=== PATIENT | female | born 1990 | race Caucasian/White ===

== ENCOUNTER 2019-05-26 15:51 | Emergency (ER) | payer OTHER ==
--- OUTSIDE RECORDS SUMMARY | 2019-05-26 15:53 | XMS REPORT | Summary of Care ---
:1990 Author Organization [facility] Address [address] [place] [address] Care Team Providers Name Role Phone Osmani Barreto Primary Care Provider Reason for Visit Reason Comments Care Encounter Details Date Type Department Care Team Description [facility] Supervision of high risk in first trimester (Primary Dx); Visit LENNY Mott Previous delivery affecting , antepartum; [address] [place] [address] History of hypothyroidism; [place], [place] Nausea without vomiting; [address] [place], [place] Varicose veins of legs, antepartum; [phone] [address] UTI symptoms; [phone] Obesity in Allergies Active Allergy Reactions Severity Noted Date Comments Sulfa (Sulfonamide Antibiotics) Rash High 04/16/2019 documented as of this encounter (statuses as of 04/22/2019) Medications Medication Sig Dispensed Refills Start Date End Date Status Thyroid, Pork, (ARMOUR Take 180 mg 0 Active THYROID) 120 mg tablet by mouth daily. HYDROCHLOROTHIAZIDE ORAL Take by 0 Active mouth. vit Take 1 Packet 30 Each 6 04/18/2019 Active 46-msyj-izsbo-dha by mouth (SELECT-OB + DHA) 29 mg daily. iron-1 mg -250 mg combo packIndications: High risk , antepartum documented as of this encounter (statuses as of 04/22/2019) Active Problems Problem Noted Date Cervical high risk human papillomavirus (HPV) DNA test positive 04/18/2019 Overview: Normal pap Smear-> Needs Cotesting @12 months or HPV DNA Typing High risk , antepartum 04/16/2019 Previous delivery affecting , antepartum 04/16/2019 Multiparity 04/16/2019 History of hypothyroidism 04/16/2019 Nausea without vomiting 04/16/2019 Obesity in 06/13/2017 Estimated Date of Delivery Comments Yes 12/15/2019 Based on last menstrual period of 03/10/2019 (Exact Date) documented as of this encounter (statuses as of 04/22/2019) Resolved Problems Problem Noted Date Resolved Date Elevated blood pressure reading without diagnosis of 06/10/2016 04/16/2019 hypertension Hypothyroidism 06/10/2016 04/16/2019 Prehypertension 06/09/2015 04/16/2019 Other general counseling and advice for contraceptive 06/09/2015 06/09/2015 management Contraceptive management 06/09/2015 04/16/2019 Well woman exam 06/09/2015 04/16/2019 Overview: ICD10 Diagnosis Term Internet Systems Administrator Utility Morbid obesity 06/09/2015 06/13/2017 Overview: ICD10 Diagnosis Term Internet Systems Administrator Utility Other malaise and fatigue 06/09/2015 06/10/2016 Overweight 06/06/2013 06/09/2015 Overview: ICD10 Diagnosis Term Internet Systems Administrator Utility delivery delivered 04/16/2011 02/21/2014 Overview: ICD10 Diagnosis Term Internet Systems Administrator Utility documented as of this encounter (statuses as of 04/22/2019) Immunizations Name Administration Dates Next Due Rubella 03/22/2007 Tdap 06/26/2014 documented as of this encounter Social History Tobacco Use Types Packs/Day Years Used Date Former Smoker Quit: 08/25/2010 Smokeless Tobacco: Never Used Alcohol Use Drinks/Week oz/Week Comments No Estimated Date of Delivery Comments Yes 12/15/2019 Based on last menstrual period of 03/10/2019 (Exact Date) Sex Assigned at Date Recorded Not on file Job Start Date Occupation Industry Not on file Not on file Not on file Travel History Travel Start Travel End No recent travel history available. documented as of this encounter Last Filed Vital Signs Vital Sign Reading Time Taken Comments Blood Pressure 147/96 04/22/2019 8:45 AM CDT Pulse 99 04/22/2019 8:45 AM CDT Temperature 36.1 C (97 F) 04/22/2019 8:45 AM CDT Respiratory Rate 16 04/22/2019 8:45 AM CDT Oxygen Saturation - - Inhaled Oxygen Concentration - - Weight 100.8 kg (222 lb 2 oz) 04/22/2019 8:45 AM CDT Height 160 cm (5' 3") 04/22/2019 8:45 AM CDT Body Mass Index 39.35 04/22/2019 8:45 AM CDT documented in this encounter Progress Notes Osmani Barreto, ASSISTANT CLINICAL DIRECTOR - 04/22/2019 9:00 AM CDT Chief complaint: Chief Complaint Patient presents with Care HPI CC: Follow Up Visit Patricia Stone is a 28 year old, , /White female. Patient's last menstrual period was 03/10/2019 (exact date). She is 6w1d with an intrauterine . Her estimated date of delivery is 12/15/2019, by Last Menstrual Period. She has no complains of knots on her legs today today.She denies FM, contractions, LOF and bleeding today.Patient denies current or past physical, sexualor emotional abuse. Histories OB History Para Term AB Living 3 2 2 2 SAB TAB Ectopic Multiple Live Births 2 # Outcome Date GA Lbr Laci/2nd Weight Sex Delivery Anes PTL Lv 3 Current 2 Term 04/15/11 39w0d F SEC YOSEPH Complications: Other (See Comments) 1 Term 01/05/06 40w0d F VAGINAL YOSEPH Past Medical History: Diagnosis Date 2010 Hypothyroidism 06/10/2016 on medication at this time, managed by Li Arellano, last seen in 12/2017 Family History Problem Relation Age of Onset Hypertension Father Cancer Paternal Uncle Diabetes Paternal Grandmother Heart Mother No Significant Medical Problems Sister No Significant Medical Problems Brother Other - see comments Maternal Grandmother thyroid Alzheimers dementia Maternal Grandmother Heart Maternal Grandfather No Significant Medical Problems Paternal Grandfather Arthritis NoFHx defects NoFHx Asthma NoFHx Breast Cancer NoFHx Ovarian Cancer NoFHx Colon Cancer NoFHx Uterine Cancer NoFHx Depression NoFHx Genetic NoFHx High cholesterol NoFHx Mental retardation NoFHx Neurological NoFHx Osteoporosis NoFHx Psychiatry NoFHx Family Status Relation Name Status Fa Alive PUnc Alive PGMo Mo Alive Sis Alive Bro Alive MAunt Alive MUnc Alive PAunt Alive MGMo MGFa PGFa Alive NoFHx (Not Specified) Past Surgical History: Procedure Laterality Date DELIVERY+ CARE 04/15/2011 SECTION 04/15/2011 Social History Socioeconomic History Marital status: Single Spouse name: Not on file Number of children: Not on file Years of education: Not on file Highest education level: Not on file Occupational History Not on file Social Needs Financial resource strain: Not on file Food insecurity: Worry: Not on file Inability: Not on file Transportation needs: Medical: Not on file Non-medical: Not on file Tobacco Use Smoking status: Former Smoker Last attempt to quit: 08/25/2010 Years since quittin.6 Smokeless tobacco: Never Used Substance and Sexual Activity Alcohol use: No Drug use: No Sexual activity: Yes Partners: Male control/protection: Pill Comment: last sexual intercourse 04/13/2019 Lifestyle Physical activity: Days per week: Not on file Minutes per session: Not on file Stress: Not on file Relationships Social connections: Talks on phone: Not on file Gets together: Not on file Attends mandaeism service: Not on file Active member of club or organization: Not on file Attends meetings of clubs or organizations: Not on file Relationship status: Not on file Intimate partner violence: Fear of current or ex partner: Not on file Emotionally abused: Not on file Physically abused: Not on file Forced sexual activity: Not on file Other Topics Concern Not on file Social History Narrative Pt denies current or past physical, sexual or emotional abuse. Pt states she feels safe at home. Sabianism preference none. Patient lives with children. Social History Substance and Sexual Activity Sexual Activity Yes Partners: Male control/protection: Pill Comment: last sexual intercourse 04/13/2019 Labs No new labs Radiology No new radiology. Allergies Crystal is allergic to sulfa (sulfonamide antibiotics). Medications Crystal has a current medication list which includes the following prescription( s): vit 16-yxjz-aumpg-dha, hydrochlorothiazide, and thyroid (pork). Review of Systems Musculoskeletal: Knots on bilateral legs BP (!) 147/96 (BP Location: Right arm, Patient Position: Sitting, BP CUFF SIZE: Adult Medium) | Pulse 99 | Temp 36.1 C (97 F) (Oral) | Resp 16 | Ht 5' 3 " (1.6 m) | Wt 222 lb 2 oz (100.8 kg) |LMP 03/10/2019 (Exact Date) | BMI 39.35 kg/m Pregravid BMI: 39.2 Physical Exam Assessment/Plan Supervision of high risk in first trimester (primary encounter diagnosis) Previous delivery affecting , antepartum Comment: Routine Visit Plan: POCT URINALYSIS W/O SPECIFIC GRAVITY Denies zika virus risk, signs and symptoms such as fever,rash,joint pain, conjunctivitis (red eyes), muscle pain, headaches; outside [place] travel to areas affected by zika, and FOB exposure to zika.Educated on use of mosquito repellent. History of hypothyroidism Comment: on meds Plan: appointment with HR on Nausea without vomiting Comment: improving Plan: will continue to montor Varicose veins of legs, antepartum Comment: knots palpated on bilateral extremities Plan: Plan of care discussed with Dr. Mera, orders to encourage patient tot wear support stockings, elevate legs PRN. High Risk will assess patient at visit. Obesity in Comment: See BMI Plan: Patient encouraged to limit weight gain and sensible diet. Return to clinic in 3 days. Discussed treatment options. Medications as ordered. Reviewed patient instructions and provided printed copy. This visit did not involve counseling and coordination that comprised more than 50% of the visit time. LENNY Frey 04/22/2019 9:56 AM documented in this encounter Plan of Treatment Date Type Specialty Care Team Description 04/25/2019 Routine Visit OB Satellites Nereida MooreLfn-Rjxeh-Ur/High 05/14/2019 Routine Visit OB Satellites Osmani Barreto FNP [address] [place] [address] [phone] 05/20/2019 Esthetics Instructor Visit Maternal Medicine Name Type Priority Associated Diagnoses Order Schedule URINE CULTURE LAB Routine UTI symptoms Ordered: 04/22/2019 Health Maintenance Due Date Last Done Comments INFLUENZA VACCINE 05/26/2019 PAP SMEAR 04/16/2022 04/16/2019, 06/13/2017, 06/26/2014, Additional history exists DTaP,Tdap,and Td Vaccines 06/26/2024 06/26/2014 (2 - Td) PNEUMOCOCCAL 0-64 YEARS Aged Out No longer eligible COMBINED SERIES based on patient's age to complete this topic documented as of this encounter Procedures Procedure Name Priority Date/Time Associated Diagnosis Comments POCT URINALYSIS W/O Routine 04/22/2019 8:51 Supervision of high Results for this SPECIFIC GRAVITY AM CDT risk in procedure are in first trimester the results section. documented in this encounter Results POCT URINALYSIS W/O SPECIFIC GRAVITY (04/22/2019 8:51 AM CDT) POCT PH U 5 5 - 8 mg/dl POCT U LEUK EST trace Negative - Negative POCT U NIT neg Negative - Negative POCT U PROT neg Negative - Negative POCT U GLU neg Negative - Negative POCT U KETONE neg Negative - Negative POCT U BLD neg Negative - Negative Specimen Urine - URINE, CLEAN CATCH documented in this encounter Visit Diagnoses Diagnosis Supervision of high risk in first trimester - Primary Unspecified high-risk Previous delivery affecting , antepartum Previous delivery, antepartum condition or complication History of hypothyroidism Personal history of other endocrine, metabolic, and immunity disorders Nausea without vomiting Varicose veins of legs, antepartum UTI symptoms Obesity in Obesity complicating , childbirth, or the puerperium, unspecified as to episode of care or not applicable documented in this encounter Insurance Payer Benefit Plan / Subscriber ID Effective Dates Phone Address Type Group [employer] MEDICAID OF xxxxxxxxx 2019-Present [phone] [address] Medicaid [place] [id number] [place] [phone] documented as of this encounter Advance Directives Name Relationship Healthcare Agent Relationship Communication Lizz Stone Sibling Primary healthcare agent
--- OUTSIDE RECORDS SUMMARY | 2019-05-26 15:53 | XMS REPORT ---
:1990 [facility] [address] [place]. [address] [place] [address] Care Team Providers Name Role Phone Unavailable Unavailable Unavailable Problems This patient has no known problems. Allergies, Adverse Reactions, Alerts This patient has no known allergies or adverse reactions. Medications This patient has no known medications.
--- OUTSIDE RECORDS SUMMARY | 2019-05-26 15:53 | XMS REPORT | Summary of Care ---
:1990 Author Organization [facility] Address [address] [place] [address] Care Team Providers Name Role Phone Osmani Barreto BOWLING TEACHER Primary Care Provider Reason for Visit Reason Comments LAB Encounter Details Date Type Department Care Team Description 04/22/2019 Sound Effects Technician [facility] [address] [place] [address] Supervision of high risk , antepartum; [facility], [facility] Abnormal maternal glucose tolerance, antepartum [address] [place] [address] Allergies Active Allergy Reactions Severity Noted Date [...] 1 Packet 30 Each 6 04/18/2019 Active 26-vkqj-mmlcp-dha by mouth (SELECT-OB + DHA) 29 mg [...] exam 06/09/2015 04/16/2019 Overview: ICD10 Diagnosis Term Value Stream Leader Utility Morbid obesity 06/09/2015 06/13/2017 Overview: ICD10 Diagnosis Term Value Stream Leader Utility Other malaise and fatigue 06/09/2015 06/10/2016 Overweight 06/06/2013 06/09/2015 Overview: ICD10 Diagnosis Term Value Stream Leader Utility delivery delivered 04/16/2011 02/21/2014 Overview: ICD10 Diagnosis Term Value Stream Leader Utility documented as of this encounter (statuses [...] of this encounter Last Filed Vital Signs Not on filedocumented in this encounter Plan of Treatment Date Type Specialty Care Team Description 04/25/2019 Routine Visit OB Satellites , Coa-Xpjje-Kz/High 05/14/2019 Routine Visit OB Satellites Osmani Barreto, BOWLING TEACHER [address] [place] [address] [phone] 05/20/2019 Sound Effects Technician Visit Maternal Medicine Name Type Priority Associated Diagnoses Order Schedule GLUCOSE FASTING LAB Routine Abnormal maternal glucose Ordered: 04/22/2019 tolerance, antepartum 1 HR GLUCOSE TOLERANCE LAB Routine Abnormal maternal glucose Ordered: 04/22 TEST tolerance, antepartum 2 HR GLUCOSE TOLERANCE LAB Routine Abnormal maternal glucose Ordered: 04/22 TEST tolerance, antepartum 3 HR GLUCOSE TOLERANCE LAB Routine Abnormal maternal glucose Ordered: 04/22 TEST tolerance, antepartum Health Maintenance Due Date Last Done Comments INFLUENZA VACCINE 05/26/2019 PAP SMEAR 04/16/2022 04/16/2019, 06/13/2017, 06/26/2014, Additional history exists DTaP,Tdap,and Td Vaccines 06/26/2024 06/26/2014 (2 - Td) PNEUMOCOCCAL 0-64 YEARS Aged Out No longer eligible COMBINED SERIES based on patient's age to complete this topic documented as of this encounter Results Not on filedocumented in this encounter Visit Diagnoses Diagnosis Supervision of high risk , antepartum Abnormal maternal glucose tolerance, antepartum documented in this encounter Insurance Payer Benefit Plan / Subscriber ID Effective Dates Phone Address Type Group [employer] MEDICAID OF xxxxxxxxx 2019-Present [phone] [address] Medicaid [place] [id number] [place] [phone] documented as of this encounter Advance Directives Name Relationship Healthcare Agent Relationship Communication Lizz Stone Sibling Primary healthcare agent
--- OUTSIDE RECORDS SUMMARY | 2019-05-26 15:53 | XMS REPORT | Summary of Care ---
:1990 Author Organization [facility] Address [address] [place] [address] Care Team Providers Name Role Phone Osmani Barreto Primary Care Provider Reason for Visit Reason Comments Care Encounter Details Date Type Department Care Team Description 04/22[facility]2019 [facility] Supervision of high risk in first trimester (Primary Dx); Visit LENNY Mott Previous delivery affecting , antepartum; [address] [place] [address] History of hypothyroidism; [place], [place] Nausea without vomiting; [address] [place], [place] Varicose veins of legs, antepartum; [phone] [address] UTI symptoms; [phone] Obesity in Allergies Active Allergy Reactions Severity [...] 1 Packet 30 Each 6 04/18/2019 Active 56-tyrh-yxvnz-dha by mouth (SELECT-OB + DHA) 29 mg [...] exam 06/09/2015 04/16/2019 Overview: ICD10 Diagnosis Term Daycare Manager Utility Morbid obesity 06/09/2015 06/13/2017 Overview: ICD10 Diagnosis Term Daycare Manager Utility Other malaise and fatigue 06/09/2015 06/10/2016 Overweight 06/06/2013 06/09/2015 Overview: ICD10 Diagnosis Term Daycare Manager Utility delivery delivered 04/16/2011 02/21/2014 Overview: ICD10 Diagnosis Term Daycare Manager Utility documented as of this encounter (statuses [...] in this encounter Progress Notes Osmani Barreto, STRIKER OUT - 04/22/2019 9:00 AM CDT Chief complaint: [...] file Gets together: Not on file Attends taoism service: Not on file Active member of [...] Pt states she feels safe at home. Yarsani preference none. Patient lives with children. Social History Substance and Sexual Activity Sexual Activity Yes Partners: Male control/protection: Pill Comment: last sexual intercourse 04/13/2019 Labs No new labs Radiology No new radiology. Allergies Crystal is allergic to sulfa (sulfonamide antibiotics). Medications Crystal has a current medication list which includes the following prescription( s): vit 46-xtjb-yajcl-dha, hydrochlorothiazide, and thyroid (pork). Review of Systems [...] High Risk will assess patient at visit. UTI symptoms Comment: patient report frequent urination, lower back pain Plan: URINE CULTURE Increase in water and emptying of the bladder encouraged. Obesity in Comment: See BMI Plan: Patient [...] Care Team Description 04/25/2019 Routine Visit OB Filiberto Cade-Rmchp-Np/High 05/14/2019 Routine Visit OB Osmani Bernal FNP [address] [place] [address] [phone] 05/20/2019 Chief Engineer Research Visit Maternal Medicine Name Type Priority Associated [...] Type Group [employer] MEDICAID OF xxxxxxxxx 2019-Present [phone] [address] Medicaid [place] [id number] [place] [phone] documented as of this encounter Advance Directives Name Relationship Healthcare Agent Relationship Communication Lizz Stone Sibling Primary healthcare agent
--- OUTSIDE RECORDS SUMMARY | 2019-05-26 15:54 | XMS REPORT | Summary of Care ---
:1990 Author Organization [facility] Address [address] [place] [address] Care Team Providers Name Role Phone Osmani Barreto [facility] Primary Care Provider Reason for Visit Reason Comments Abnormal Lab ABnormal 3 hr GTT, GDM Encounter Details Date Type Department Care Team Description 04/23/2019 Telephone [facility]- Osmani Barreto, Abnormal Lab ( ABnormal [place] FNP 3 hr GTT, GDM) [address] [facility] [address] [place] [address] Allergies Active Allergy Reactions Severity Noted Date Comments Sulfa (Sulfonamide Antibiotics) Rash High 04/16/2019 documented as of this encounter (statuses as of 04/23/2019) Medications Medication Sig Dispensed Refills Start Date End Date Status Thyroid, Pork, (ARMOUR Take 180 mg by 0 Active THYROID) 120 mg tablet mouth daily. HYDROCHLOROTHIAZIDE ORAL Take by 0 Active mouth. vit Take 1 Packet 30 Each 6 04/18/2019 Active 40-utze-cdpps-dha by mouth (SELECT-OB + DHA) 29 mg daily. iron-1 mg -250 mg combo packIndications: High risk , antepartum Blood-Glucose Meter Use as 1 Kit 0 04/23/2019 Active (FREESTYLE LITE METER) directed KitIndications: Diet controlled gestational diabetes mellitus (GDM) in first trimester blood sugar diagnostic Use as 1 Box 9 04/23/2019 Active (FREESTYLE LITE STRIPS) directed stripIndications: Diet controlled gestational diabetes mellitus (GDM) in first trimester lancets 17 gauge Use as 100 Each 9 04/23/2019 Active MiscIndications: Diet directed controlled gestational diabetes mellitus (GDM) in first trimester documented as of this encounter (statuses as of 04/23/2019) Active Problems Problem Noted Date Cervical high [...] as of this encounter (statuses as of 04/23/2019) Resolved Problems Problem Noted Date Resolved Date Elevated blood pressure reading without diagnosis of 06/10/2016 04/16/2019 hypertension Hypothyroidism 06/10/2016 04/16/2019 Prehypertension 06/09/2015 04/16/2019 Other general counseling and advice for contraceptive 06/09/2015 06/09/2015 management Contraceptive management 06/09/2015 04/16/2019 Well woman exam 06/09/2015 04/16/2019 Overview: ICD10 Diagnosis Term Boarder Machine Utility Morbid obesity 06/09/2015 06/13/2017 Overview: ICD10 Diagnosis Term Boarder Machine Utility Other malaise and fatigue 06/09/2015 06/10/2016 Overweight 06/06/2013 06/09/2015 Overview: ICD10 Diagnosis Term Boarder Machine Utility delivery delivered 04/16/2011 02/21/2014 Overview: ICD10 Diagnosis Term Boarder Machine Utility documented as of this encounter (statuses as of 04/23/2019) Immunizations Name Administration Dates Next Due Rubella [...] Description 04/25/2019 Routine Visit OB Satellites , Vue-Jfehm-Nk/High 05/14/2019 Routine Visit OB Satellites EstevanOsmani, TRENCH DIGGER [address] [place] [address] [phone] 05/20/2019 Manager Procurement Visit Maternal Medicine Health Maintenance Due Date Last Done Comments INFLUENZA VACCINE 05/26/2019 PAP SMEAR 04/16/2022 04/16/2019, 06/13/2017, 06/26/2014, Additional history exists DTaP,Tdap,and Td Vaccines 06/26/2024 06/26/2014 (2 - Td) PNEUMOCOCCAL 0-64 YEARS Aged Out No longer eligible COMBINED SERIES based on patient's age to complete this topic documented as of this encounter Results Not on filedocumented in this encounter Visit Diagnoses Diagnosis Diet controlled gestational diabetes mellitus (GDM) in first trimester - Primary documented in this encounter Insurance Payer Benefit Plan / Subscriber ID Effective Dates Phone Address Type Group [employer] MEDICAID OF xxxxxxxxx 2019-Present [phone] [place] [address] [place] [address] documented as of this encounter Advance Directives Name Relationship Healthcare Agent Relationship Communication Lizz Stone Sibling Primary healthcare agent
--- OUTSIDE RECORDS SUMMARY | 2019-05-26 15:54 | XMS REPORT | Summary of Care ---
:1990 Author Organization [facility] Address [address] [place] [address] Care Team Providers Name Role Phone Frankie Mckenzie MD Primary Care Provider Reason for Visit Reason Comments Care Encounter Details Date Type Department Care Team Description 04/25/2019 Routine [facility]- Frankie Mckenzie MD [address] [place] [address] Supervision of high Visit [place] Faculty, Filiberto [facility] risk in [address] [facility] first trimester [place], [place] (Primary Dx) [address] Allergies Active Allergy Reactions Severity Noted Date Comments Sulfa (Sulfonamide Antibiotics) Rash High 04/16/2019 documented as of this encounter (statuses as of 04/25/2019) Medications Medication Sig Dispensed Refills Start Date End Date Status Thyroid, Pork, (ARMOUR Take 180 mg by 0 Active THYROID) 120 mg tablet mouth daily. HYDROCHLOROTHIAZIDE ORAL Take by 0 Active mouth. vit Take 1 Packet 30 Each 6 04/18/2019 Active 20-benp-gkviv-dha by mouth (SELECT-OB + DHA) 29 mg [...] as of this encounter (statuses as of 04/25/2019) Active Problems Problem Noted Date Cervical high [...] as of this encounter (statuses as of 04/25/2019) Resolved Problems Problem Noted Date Resolved Date Elevated blood pressure reading without diagnosis of 06/10/2016 04/16/2019 hypertension Hypothyroidism 06/10/2016 04/16/2019 Prehypertension 06/09/2015 04/16/2019 Other general counseling and advice for contraceptive 06/09/2015 06/09/2015 management Contraceptive management 06/09/2015 04/16/2019 Well woman exam 06/09/2015 04/16/2019 Overview: ICD10 Diagnosis Term Water Main Pipe Layer Utility Morbid obesity 06/09/2015 06/13/2017 Overview: ICD10 Diagnosis Term Water Main Pipe Layer Utility Other malaise and fatigue 06/09/2015 06/10/2016 Overweight 06/06/2013 06/09/2015 Overview: ICD10 Diagnosis Term Water Main Pipe Layer Utility delivery delivered 04/16/2011 02/21/2014 Overview: ICD10 Diagnosis Term Water Main Pipe Layer Utility documented as of this encounter (statuses as of 04/25/2019) Immunizations Name Administration Dates Next Due Rubella [...] Sign Reading Time Taken Comments Blood Pressure 118/80 04/25/2019 11:36 AM CDT Pulse 88 04/25/2019 11:36 AM CDT Temperature 36.3 C (97.3 F) 04/25/2019 11:36 AM CDT Respiratory Rate 16 04/25/2019 11:36 AM CDT Oxygen Saturation - - Inhaled Oxygen Concentration - - Weight 100.5 kg (221 lb 8 oz) 04/25/2019 11:36 AM CDT Height 160 cm (5' 3") 04/25/2019 11:36 AM CDT Body Mass Index 39.24 04/25/2019 11:36 AM CDT documented in this encounter Progress Notes Frankie Mckenzie MD - 04/25/2019 4:00 PM CDT DOMINIK KNAPP #: [id number] Date of service: 04/25/2019 12:17 Routine Visit CC: MFM visit , Routine visit SUBJECTIVE: Patient has no complaints. Denies bleeding, LOF, contractions. Feeling active movement. Pt is 6w4d IUP. She denies any pain today. ROS: General: negative, (-) fever, (-) chills, (-) dizziness Skin: negative, (-) rash, (-) lesion HEENT: negative, (-) headache Resp: negative, (-) cough, (-) shortness of breath, (-) dyspnea on exertion Cardio: negative, (-) chest pain, (-) palpitations GI: negative, (-) abdominal pain, (-) nausea, (-) vomiting : negative, (-) dysuria (-)bleeding (-) LOF Psych: negative, (-) anxiety, (-) depression, (-) psychiatric disorder Denies abuse; Denies depression; Denies domestic violence Past Medical History: Diagnosis Date Chlamydia 2010 Hypothyroidism 06/10/2016 on medication at this time, managed by Li Arellano, last seen in 12/2017 Social History Socioeconomic History Marital status: Single [...] file Gets together: Not on file Attends baptist service: Not on file Active member of [...] Pt states she feels safe at home. Latter Day preference none. Patient lives with children. . Family History Problem Relation Age of Onset [...] NoFHx Neurological NoFHx Osteoporosis NoFHx Psychiatry NoFHx OBJECTIVE: BP 118/80 (BP Location: Right arm, Patient Position: Sitting, BP CUFF SIZE: Adult Large) | Pulse 88 | Temp 36.3 C (97.3 F) (Oral) | Resp 16 | Ht 5' 3 " (1.6 m) | Wt 221 lb 8 oz (100.5 kg) | LMP 03/10/2019 (Exact Date) | BMI 39.24 kg/m Normalized qqhwxwm-swu-qcs data not available for patients older than 20 years. Normalized itjckx-zqv-tyw data not available for patients older than 20 years. No head circumference on file for this encounter. General: no acute distress and alert Respiratory: chest non-tender, no respiratory distress Abdomen: soft, non-tender,gravid size=dates Back: non-tender, normal inspection, painless range of motion and (-) CVA tenderness Skin: intact and warm, dry Extremities: normal range of motion and gait normal Neuro/Psych: alert, oriented x3, cooperative, interactive and mood/affect normal WBC x10^3 Date Value 06/26/2014 6.9 /uL 04/16/2011 13.2 /CMM (H) WBC Date Value 04/16/2019 7.74 10*3/L 06/09/2015 8.5 10*3/uL HGB Date Value 04/16/2019 13.3 g/dL 06/09/2015 13.1 g/dL 06/26/2014 13.2 G/DL 04/16/2011 8.0 G/DL (L) HCT (%) Date Value 04/16/2019 40.8 06/09/2015 40.1 06/26/2014 39.3 04/16/2011 24.9 (L) PLT x10^3 Date Value 06/26/2014 318 /uL 04/16/2011 168 /CMM PLT Date Value 04/16/2019 321 10*3/L 06/09/2015 314 10*3/uL AST(SGOT) (U/L) Date Value 11/29/2010 49 (H) ALT(SGPT) (U/L) Date Value 11/29/2010 39 CREATININE (MG/DL) Date Value 04/14/2011 0.60 11/29/2010 0.60 Routine Visit on 04/25/2019 Component Date Value Ref Range Status POCT PH U 04/25/2019 6 5 - 8 mg/dl Final POCT U LEUK EST 04/25/2019 2+ Negative - Negative Final POCT U NIT 04/25/2019 Neg Negative - Negative Final POCT U PROT 04/25/2019 Trace Negative - Negative Final POCT U GLU 04/25/2019 Neg Negative - Negative Final POCT U KETONE 04/25/2019 None Negative - Negative Final POCT U BLD 04/25/2019 Neg Negative - Negative Final Routine Visit on 04/22/2019 Component Date Value Ref Range Status POCT PH U 04/22/2019 5 5 - 8 mg/dl Final POCT U LEUK EST 04/22/2019 trace Negative - Negative Final POCT U NIT 04/22/2019 neg Negative - Negative Final POCT U PROT 04/22/2019 neg Negative - Negative Final POCT U GLU 04/22/2019 neg Negative - Negative Final POCT U KETONE 04/22/2019 neg Negative - Negative Final POCT U BLD 04/22/2019 neg Negative - Negative Final URINE CULTURE 04/22/2019 > 100,000 CFU/mL mixed aerobic organisms - suggests endogenous microbial contamination Final Harbormaster Visit on 04/22/2019 Component Date Value Ref Range Status GLU FASTNG 04/22/2019 114* 70 - 110 mg/dL Final GLUC 1 HR 04/22/2019 199* 120 - 170 mg/dL Final GLUC 2 HR 04/22/2019 176* 70 - 120 mg/dL Final GLUC 3 HR 04/22/2019 105 70 - 110 mg/dL Final Immunization History Administered Date(s) Administered Rubella 03/22/2007 Tdap 06/26/2014 Pended Date(s) Pended Rho (d) Immune Globulin 04/15/2011 Radiology: I have reviewed the patient's Radiology report(s). Assessment and Plan :28 year old 6w4d intrauterine OB History Para Term AB Living 3 2 2 2 SAB TAB Ectopic Multiple Live Births 2 # Outcome Date GA Lbr Laci/2nd Weight Sex Delivery Anes PTL Lv 3 Current 2 Term 04/15/11 39w0d F SEC YOSEPH Complications: Other (See Comments) 1 Term 01/05/06 40w0d F VAGINAL YOSEPH Current Outpatient Medications Medication Sig Dispense Refill blood sugar diagnostic (FREESTYLE LITE STRIPS) strip Use as directed 1 Box 9 Blood-Glucose Meter (FREESTYLE LITE METER) Kit Use as directed 1 Kit 0 lancets 17 gauge Misc Use as directed 100 Each 9 vit 16-mybr-njvat-dha (SELECT-OB + DHA) 29 mg iron-1 mg -250 mg combo pack Take 1 Packet by mouth daily. 30 Each 6 HYDROCHLOROTHIAZIDE ORAL Take by mouth. Thyroid, Pork, (ARMOUR THYROID) 120 mg tablet Take 180 mg by mouth daily. No current facility-administered medications for this visit. Dominik Knapp is a 28 year old female OB History Para Term AB Living 3 2 2 0 0 2 SAB TAB Ectopic Multiple Live Births 0 0 0 0 2 O09.91 Supervision of high risk in first trimester (primary encounter diagnosis) Patient Active Problem List Diagnosis Obesity in High risk , antepartum Previous delivery affecting , antepartum Multiparity History of hypothyroidism Nausea without vomiting Cervical high risk human papillomavirus (HPV) DNA test positive Age: [age] year old GA: 6w4d Dating scheduled after that will schedule detailed echo, genetics and Aneuploidy screen. Pregestational Diabetes Mellitus: - Diagnosed in At < 6 week by elevated 3hr gtt. Now to start diabetic diest and initiate glucose surveillance. -- if failed diabetic diet patient can be started on glyburide 2.5mg po BID. In these cases NST 1x week if good control or NST 2x week if bad control after glyburide. - Diabetic teaching including 4x day checking sugars, fasting & 2hr Post prandial. - Log book compliance. - Diabetic diet education usually 2200kCal/day. (if obese 1800 kcal/day) Carbohydrates (35-40% totalcalories). Initial workup : - Hgb a1c to be withdrawn . - Please consult ophthalmology. -Please obtain 24hr protein and creatinine clearance. - Anatomy scan @ 18-22 weeks with Serial growth scans every 3-4 weeks. - Glucose levels Goals: Fasting: < 90mg/dL or 2 hr PP < 120mg/dL A1 c < 7% ideally <6.5% - Delivery plan @ 39 weeks gestation unless otherwise indicative by or maternal indications and discussed by [facility] faculty Hypothyroidism: Used to see a physician on Armor thyroid 180mg daily. Her labs include Recent Labs 04/16/19 1028 TSH <0.02* FT4 at this trimester: notavailable. I have discussed the following points with the patient: - - trimester-specific reference ranges for TSH: first trimester, 0.12.5 mIU/ L; second trimester,0.23.0 mIU/L; third trimester, 0.33.0 mIU/L. - TRimester specific FT4 reference ranges" 1.13 +/- 0.23 ng/dL in the first trimester, 0.92 +/- 0.30 ng/dL in the second trimester, and 0.86 +/- 0.21 ng/dL in the third trimester. No generic nor formulations are recommended and T4 should be taken on an empty stomach, ideally an hour before breakfast. - The goal of LT4 treatment is to normalize maternal serum TSH values within the trimester-specific reference range (first trimester, 0.12.5 mIU /L; second trimester, 0.23.0 mIU/L; thirdtrimester, 0.33.0 mIU/L). - TSH and FT4 q 4 weeks until 20 weeks. -Adjust LT4 dose to maintain TSH<2.5 in first, and 3.0 in second trimester -TSH and FT4 between 26-32 weeks -Adjust LT4 dose to maintain TSH <3.0 in the third trimester For patient being treated for hypothyroidism prior to or at confirmation of these are our recommendations: -Treated hypothyroid patients (receiving LT4) who are newly should independently increase their dose of LT4 by *25%30% upon a missed menstrual cycle or positive home test and notify their caregiver promptly. One means of accomplishing this adjustment is to increase LT4 from once daily dosing to a total of nine doses per week (29% increase). -In patients with treated hypothyroidism, maternal serum TSH should be monitored approximately every 4 weeks during the first half of because further LT4 dose adjustments are often required. - In patients with treated hypothyroidism, maternal TSH should be checked at least once between 26 and 32 weeks gestation. In the period: - LT4 should be reduced to the patients preconception dose. Additional TSH testing should be performed at approximately 6 weeks . All questions were answered, patient understands plan of care and understands that her primary physician will receive the above recommendation either by epic referral or letter. Thank you for allowing us to participate in the care of Dominik Knapp , please feel free to contact our group in regards to any questions. Will send Ft4 and tsh again. EDema/Varicose veins: take HCTZ for fluid retention from her physician NOT for HTN. Advised that shecan take after 12 weeks . Will keep a close look for high blood pressure. RTC 1 week to review labs and glucose log. : RI, VZI serologies neg previous CDx1. Will need records. Frankie Mckenzie MD Plan of care, kick count, PI precautions documented in this encounter Plan of Treatment Date Type Specialty Care Team Description 05/02/[address] [facility] TRANSPORT COORDINATOR [address] [place] [address] [phone] 05/14/[address] [facility] Abbie Barretojavid Soares, TRANSPORT COORDINATOR [address] [place] [address] [phone] 05/20/2019 Harbormaster Visit Maternal Medicine Name Type Priority Associated Diagnoses Date/Time GLYCOSYLATED HEMOGLOBIN LAB Routine Supervision of high risk 04/25/2019 12: 25 PM (A1C) in first CDT trimester Name Type Priority Associated Diagnoses Order Schedule THYROID STIMULATING LAB Routine Supervision of high risk Ordered: 2018 HORMONE in first trimester FREE T4 LAB Routine Supervision of high risk Ordered: 04/25/2019 in first trimester GLYCOSYLATED HEMOGLOBIN LAB Routine Supervision of high risk Ordered: 04/25 (A1C) in first trimester Health Maintenance Due Date Last Done Comments INFLUENZA VACCINE 05/26/2019 PAP SMEAR 04/16/2022 04/16/2019, 06/13/2017, 06/26/2014, Additional history exists DTaP,Tdap,and Td Vaccines 06/26/2024 06/26/2014 (2 - Td) PNEUMOCOCCAL 0-64 YEARS Aged Out No longer eligible COMBINED SERIES based on patient's age to complete this topic documented as of this encounter Procedures Procedure Name Priority Date/Time Associated Diagnosis Comments POCT URINALYSIS W/O Routine 04/25/2019 11:39 Supervision of high Results for this SPECIFIC GRAVITY AM CDT risk in procedure are in first trimester the results section. documented in this encounter Results POCT URINALYSIS W/O SPECIFIC GRAVITY (04/25/2019 11:39 AM CDT) POCT PH U 6 5 - 8 mg/dl POCT U LEUK EST 2+ Negative - Negative POCT U NIT Neg Negative - Negative POCT U PROT Trace Negative - Negative POCT U GLU Neg Negative - Negative POCT U KETONE None Negative - Negative POCT U BLD Neg Negative - Negative Specimen Urine - URINE, CLEAN CATCH documented in this encounter Visit Diagnoses Diagnosis Supervision of high risk in first trimester - Primary Unspecified high-risk documented in this encounter Insurance Payer Benefit Plan / Subscriber ID Effective Phone Address Type Group Dates [facility] xxxxxxxxx 2019-Vickie PAIGE Medicaid HEALTH CHOICE - [employer] O[employer] [id number] [facility] MEDICAID [place], [place] MEDICAID [phone] documented as of this encounter Advance Directives Name Relationship Healthcare Agent Relationship Communication Lizz Bertha Sibling Primary healthcare agent
--- OUTSIDE RECORDS SUMMARY | 2019-05-26 15:54 | XMS REPORT | Summary of Care ---
:1990 Author Organization [facility] Address [address] [place] [address] Care Team Providers Name Role Phone Frankie Mckenzie MD Primary Care Provider Reason for Visit Reason Comments Care Encounter Details Date Type Department Care Team Description 04/25/2019 Routine [facility]- Frankie Mckenzie MD [address] [place] [address] Supervision of high Visit [place] Faculty, Filiberto [facility] risk in [address] [facility] first trimester [place], [place] (Primary Dx) [address] Allergies Active Allergy [...] 1 Packet 30 Each 6 04/18/2019 Active 34-qpms-uwrmt-dha by mouth (SELECT-OB + DHA) 29 mg [...] exam 06/09/2015 04/16/2019 Overview: ICD10 Diagnosis Term Solar Energy System Installer Helper Utility Morbid obesity 06/09/2015 06/13/2017 Overview: ICD10 Diagnosis Term Solar Energy System Installer Helper Utility Other malaise and fatigue 06/09/2015 06/10/2016 Overweight 06/06/2013 06/09/2015 Overview: ICD10 Diagnosis Term Solar Energy System Installer Helper Utility delivery delivered 04/16/2011 02/21/2014 Overview: ICD10 Diagnosis Term Solar Energy System Installer Helper Utility documented as of this encounter (statuses [...] 04/25/2019 4:00 PM CDT DOMINIK KNAPP #: [id number] Date of service: 04/25/2019 12:17 Routine Visit [...] file Gets together: Not on file Attends sikhism service: Not on file Active member of [...] Pt states she feels safe at home. Jainism preference none. Patient lives with children. . [...] (Exact Date) | BMI 39.24 kg/m Normalized fflkbcg-nde-bec data not available for patients older than 20 years. Normalized seowmo-shb-rdh data not available for patients older than [...] organisms - suggests endogenous microbial contamination Final Shape Carver Visit on 04/22/2019 Component Date Value Ref [...] Use as directed 100 Each 9 vit 97-nlcw-goopr-dha (SELECT-OB + DHA) 29 mg iron-1 mg [...] by or maternal indications and discussed by [facility] faculty Hypothyroidism: Used to see a [...] Care Team Description 05/02/2019 [facility] SCRIPT DEVELOPER [address] [place] [address] [phone] 05/14/2019 Routine Visit OB [facility] Abbie Barretojaivd Soares, SCRIPT DEVELOPER [address] [place] [address] [phone] 05/20/2019 Shape Carver Visit Maternal Medicine Name Type Priority Associated [...] ID Effective Phone Address Type Group Dates [facility] xxxxxxxxx 2019-Vickie PAIGE Medicaid HEALTH CHOICE - [employer] [id number] [facility] MEDICAID [place], [place] MEDICAID [phone] documented as of this encounter Advance Directives Name Relationship Healthcare Agent Relationship Communication Lizz Bertha Sibling Primary healthcare agent
--- OUTSIDE RECORDS SUMMARY | 2019-05-26 15:54 | XMS REPORT | Summary of Care ---
:1990 Author Organization [facility] Address [address] [place] [address] Care Team Providers Name Role Phone Osmani Barreto Primary Care Provider Reason for Visit Reason Comments Care Encounter Details Date Type Department Care Team Description 04/22[facility] Supervision of high risk in first trimester (Primary Dx); Visit LENNY Mott Previous delivery affecting , antepartum; [address] [place] [address] History of hypothyroidism; [place], [place] Nausea without vomiting; [address] [place], [place] Varicose veins of legs, antepartum; [phone] [address] UTI symptoms; [phone] Obesity in Allergies Active Allergy Reactions Severity [...] 1 Packet 30 Each 6 04/18/2019 Active 29-nwuz-tnuvn-dha by mouth (SELECT-OB + DHA) 29 mg [...] exam 06/09/2015 04/16/2019 Overview: ICD10 Diagnosis Term Cereal Popper Utility Morbid obesity 06/09/2015 06/13/2017 Overview: ICD10 Diagnosis Term Cereal Popper Utility Other malaise and fatigue 06/09/2015 06/10/2016 Overweight 06/06/2013 06/09/2015 Overview: ICD10 Diagnosis Term Cereal Popper Utility delivery delivered 04/16/2011 02/21/2014 Overview: ICD10 Diagnosis Term Cereal Popper Utility documented as of this encounter (statuses [...] in this encounter Progress Notes Osmani Barreto, LUBE ATTENDANT - 04/22/2019 9:00 AM CDT Chief complaint: [...] file Gets together: Not on file Attends yarsanism service: Not on file Active member of [...] Pt states she feels safe at home. Orthodox preference none. Patient lives with children. Social History Substance and Sexual Activity Sexual Activity Yes Partners: Male control/protection: Pill Comment: last sexual intercourse 04/13/2019 Labs No new labs Radiology No new radiology. Allergies Crystal is allergic to sulfa (sulfonamide antibiotics). Medications Crystal has a current medication list which includes the following prescription( s): vit 85-zdnj-wotzt-dha, hydrochlorothiazide, and thyroid (pork). Review of Systems [...] Visit OB Osmani Bernal FNP [address] [place] [address] [phone] 05/20/2019 Study Manager Visit Maternal Medicine Name Type Priority Associated Diagnoses Date/Time URINE CULTURE LAB Routine UTI symptoms 04/22/2019 10:01 AM CDT Health Maintenance Due Date Last Done Comments [...] Type Group [facility] MEDICAID OF xxxxxxxxx 2019-Present [phone] [address] Medicaid [place] [id number] [place] [id number] documented as of this encounter Advance Directives Name Relationship Healthcare Agent Relationship Communication Lizz Stone Sibling Primary healthcare agent
--- OUTSIDE RECORDS SUMMARY | 2019-05-26 15:54 | XMS REPORT | Summary of Care ---
:1990 Author Organization [facility] Address [address] [place] [address] Care Team Providers Name Role Phone Frankie Mckenzie MD Primary Care Provider Reason for Visit Reason Comments Care Encounter Details Date Type Department Care Team Description 04/25/2019 Routine [facility]- Frankie Mckenzie MD [address] [place] [address] Supervision of high Visit [place] Faculty, Filiberto [facility] risk in [address] [facility] first trimester [place], [place] (Primary Dx) [phone] Allergies Active Allergy [...] 1 Packet 30 Each 6 04/18/2019 Active 21-ptkz-gwozz-dha by mouth (SELECT-OB + DHA) 29 mg [...] exam 06/09/2015 04/16/2019 Overview: ICD10 Diagnosis Term Life Cycle Assessment Analyst Utility Morbid obesity 06/09/2015 06/13/2017 Overview: ICD10 Diagnosis Term Life Cycle Assessment Analyst Utility Other malaise and fatigue 06/09/2015 06/10/2016 Overweight 06/06/2013 06/09/2015 Overview: ICD10 Diagnosis Term Life Cycle Assessment Analyst Utility delivery delivered 04/16/2011 02/21/2014 Overview: ICD10 Diagnosis Term Life Cycle Assessment Analyst Utility documented as of this encounter (statuses [...] Mckenzie MD - 04/25/2019 4:00 PM CDT PATRICIA KNAPP #: [id number] Date of service: 04/25/2019 12:17 Routine Visit [...] file Gets together: Not on file Attends hindu service: Not on file Active member of [...] Pt states she feels safe at home. Mormon preference none. Patient lives with children. . [...] (Exact Date) | BMI 39.24 kg/m Normalized imnpzpc-qzd-wno data not available for patients older than 20 years. Normalized lgqdpr-bmh-gas data not available for patients older than [...] organisms - suggests endogenous microbial contamination Final Certified Phlebotomist Visit on 04/22/2019 Component Date Value Ref [...] Use as directed 100 Each 9 vit 97-tcqv-xtiwq-dha (SELECT-OB + DHA) 29 mg iron-1 mg -250 mg combo pack Take 1 Packet by mouth daily. 30 Each 6 HYDROCHLOROTHIAZIDE ORAL Take by mouth. Thyroid, Pork, (ARMOUR THYROID) 120 mg tablet Take 180 mg by mouth daily. No current facility-administered medications for this visit. Patricia Knapp is a 28 year old female [...] by or maternal indications and discussed by [facility] faculty Hypothyroidism: Used to see a [...] us to participate in the care of Patricia Knapp , please feel free to contact [...] Date Type Specialty Care Team Description 04/25/2019 Nurse Visit [facility] Frankie Mckenzie MD [address] [place] [address] Arrived Visit, Cynthia Nurse 05/14/2019 Routine Visit OB [facility] Osmani Barreto, PETROLEUM BLENDING PLANT OPERATOR [address] [place] [address] 05/20/2019 Certified Phlebotomist Visit Maternal Medicine Name Type Priority Associated [...] ID Effective Phone Address Type Group Dates [facility] xxxxxxxxx 2019-Vickie PAIGE Medicaid HEALTH CHOICE - [place] [id number] MANAGED MEDICAID [place], [place] MEDICAID [phone] documented as of this encounter Advance Directives Name Relationship Healthcare Agent Relationship Communication Lizz Bertha Sibling Primary healthcare agent
--- OUTSIDE RECORDS SUMMARY | 2019-05-26 15:54 | XMS REPORT | Summary of Care ---
:1990 Author Organization [facility] Address [address] [place] [id number] Care Team Providers Name Role Phone Osmani Barreto [facility] Primary Care Provider Reason for Visit Reason Comments Abnormal Lab ABnormal 3 hr GTT, GDM Encounter Details Date Type Department Care Team Description 04/23/2019 Telephone [facility]- Osmani Barreto, Abnormal Lab ( ABnormal [place] FNP 3 hr GTT, GDM) [address] [facility] [address] [place] [id number] Allergies Active Allergy Reactions Severity Noted [...] 1 Packet 30 Each 6 04/18/2019 Active 90-fgmx-cnwfy-dha by mouth (SELECT-OB + DHA) 29 mg [...] exam 06/09/2015 04/16/2019 Overview: ICD10 Diagnosis Term Chuck Tender Utility Morbid obesity 06/09/2015 06/13/2017 Overview: ICD10 Diagnosis Term Chuck Tender Utility Other malaise and fatigue 06/09/2015 06/10/2016 Overweight 06/06/2013 06/09/2015 Overview: ICD10 Diagnosis Term Chuck Tender Utility delivery delivered 04/16/2011 02/21/2014 Overview: ICD10 Diagnosis Term Chuck Tender Utility documented as of this encounter (statuses [...] Description 04/25/2019 Routine Visit OB Satellites , Vnt-Ocqjh-Zu/High 05/14/2019 Routine Visit OB Satellites EstevanOsmani, WATER AND GAS HELPER [address] [place] [address] [phone] 05/20/2019 Membership Secretary Visit Maternal Medicine Health Maintenance Due Date [...] Type Group [facility] MEDICAID OF xxxxxxxxx 2019-Present [phone] Medicaid [place] [address] [place] [address] documented as of this encounter Advance Directives Name Relationship Healthcare Agent Relationship Communication Lizz Stone Sibling Primary healthcare agent
--- OUTSIDE RECORDS SUMMARY | 2019-05-26 15:54 | XMS REPORT | Summary of Care ---
:1990 Author Organization [facility] Address [address] [place] [address] Care Team Providers Name Role Phone Frankie Mckenzie MD Primary Care Provider Reason for Visit Reason Comments Care Encounter Details Date Type Department Care Team Description 04/25/2019 Routine [facility]- Frankie Mckenzie MD [address] [place] [address] Supervision of high Visit Watkins Faculty, Filiberto [facility] risk in [address] [facility] first trimester [place], [place] (Primary Dx) [phone] Allergies Active Allergy [...] 1 Packet 30 Each 6 04/18/2019 Active 64-fsqu-imrte-dha by mouth (SELECT-OB + DHA) 29 mg [...] exam 06/09/2015 04/16/2019 Overview: ICD10 Diagnosis Term District Engineer Utility Morbid obesity 06/09/2015 06/13/2017 Overview: ICD10 Diagnosis Term District Engineer Utility Other malaise and fatigue 06/09/2015 06/10/2016 Overweight 06/06/2013 06/09/2015 Overview: ICD10 Diagnosis Term District Engineer Utility delivery delivered 04/16/2011 02/21/2014 Overview: ICD10 Diagnosis Term District Engineer Utility documented as of this encounter (statuses [...] 04/25/2019 4:00 PM CDT DOMINIK KNAPP #: [id number] Date of service: 04/25/2019 12:17 Routine Visit [...] file Gets together: Not on file Attends buddhist service: Not on file Active member of [...] Pt states she feels safe at home. Baptism preference none. Patient lives with children. . [...] (Exact Date) | BMI 39.24 kg/m Normalized unxvvsy-kus-zcg data not available for patients older than 20 years. Normalized bfnzjm-aet-oba data not available for patients older than [...] organisms - suggests endogenous microbial contamination Final Spooler Visit on 04/22/2019 Component Date Value Ref [...] Use as directed 100 Each 9 vit 81-yucd-hpsbe-dha (SELECT-OB + DHA) 29 mg iron-1 mg [...] by or maternal indications and discussed by [facility] faculty Hypothyroidism: Used to see a physician [...] Care Team Description 05/02/2019 Routine Visit OB Satellites Janie Barretonikky Rodger, FELT HAT POUNCING OPERATOR HAND [address] [place] [address] [phone] 05/14/2019 Routine Visit OB [facility] Abbie Barretojavid Soares, FELT HAT POUNCING OPERATOR HAND [address] [place] [address] [phone] 05/20/2019 Spooler Visit Maternal Medicine Name Type Priority Associated Diagnoses Date/Time GLYCOSYLATED HEMOGLOBIN LAB Routine Supervision of high risk 04/25/2019 12: 25 PM (A1C) in first CDT trimester THYROID STIMULATING LAB Routine Supervision of high risk 04/25/2019 12:55 PM HORMONE in first CDT trimester FREE T4 LAB Routine Supervision of high risk 04/25/2019 12:55 PM in first CDT trimester GLYCOSYLATED HEMOGLOBIN LAB Routine Supervision of high risk 04/25/2019 12: 55 PM (A1C) in first CDT trimester Health Maintenance Due Date Last Done [...] ID Effective Phone Address Type Group Dates [facility] xxxxxxxxx 2019-Vickie PAIGE Medicaid HEALTH CHOICE - [employer] [id number] MANAGED MEDICAID [place], [place] MEDICAID [address] documented as of this encounter Advance Directives Name Relationship Healthcare Agent Relationship Communication Lizz Bertha Sibling Primary healthcare agent [phone] ([place])
--- OUTSIDE RECORDS SUMMARY | 2019-05-26 15:55 | XMS REPORT | Summary of Care ---
:1990 Author Organization [facility] Address [address] [place] [address] Care Team Providers Name Role Phone Osmani Barreto Primary Care Provider Reason for Visit Reason Comments Care Encounter Details Date Type Department Care Team Description 05/02/2019 Routine [facility] Osmani Barreto Supervision of high risk in first trimester (Primary Dx); Visit LENNY Mott Previous delivery affecting , antepartum; [address] [facility] [address] [facility] History of hypothyroidism; [place], [place] [employer]; [phone] [place], [place] Diet controlled gestational diabetes mellitus (GDM) in first trimester [phone] Allergies Active Allergy Reactions Severity Noted Date Comments Sulfa (Sulfonamide Antibiotics) Rash High 04/16/2019 documented as of this encounter (statuses as of 05/02/2019) Medications Medication Sig Dispensed Refills Start Date End Date Status Thyroid, Pork, (ARMOUR Take 180 mg by 0 Active THYROID) 120 mg tablet mouth daily. HYDROCHLOROTHIAZIDE ORAL Take by 0 Active mouth. vit Take 1 Packet 30 Each 6 04/18/2019 Active 45-lgwx-bbntg-dha by mouth (SELECT-OB + DHA) 29 mg [...] (GDM) in first trimester blood sugar diagnostic Patient needs 1 Box 5 04/26/2019 Active strip to check glucose 4X/daily. documented as of this encounter (statuses as of 05/02/2019) Active Problems Problem Noted Date Cervical high [...] as of this encounter (statuses as of 05/02/2019) Resolved Problems Problem Noted Date Resolved Date Elevated blood pressure reading without diagnosis of 06/10/2016 04/16/2019 hypertension Hypothyroidism 06/10/2016 04/16/2019 Prehypertension 06/09/2015 04/16/2019 Other general counseling and advice for contraceptive 06/09/2015 06/09/2015 management Contraceptive management 06/09/2015 04/16/2019 Well woman exam 06/09/2015 04/16/2019 Overview: ICD10 Diagnosis Term Marshmallow Maker Utility Morbid obesity 06/09/2015 06/13/2017 Overview: ICD10 Diagnosis Term Marshmallow Maker Utility Other malaise and fatigue 06/09/2015 06/10/2016 Overweight 06/06/2013 06/09/2015 Overview: ICD10 Diagnosis Term Marshmallow Maker Utility delivery delivered 04/16/2011 02/21/2014 Overview: ICD10 Diagnosis Term Marshmallow Maker Utility documented as of this encounter (statuses as of 05/02/2019) Immunizations Name Administration Dates Next Due Rubella [...] Sign Reading Time Taken Comments Blood Pressure 129/82 05/02/2019 9:37 AM CDT Pulse 91 05/02/2019 9:37 AM CDT Temperature 37.2 C (98.9 F) 05/02/2019 9:37 AM CDT Respiratory Rate 16 05/02/2019 9:37 AM CDT Oxygen Saturation - - Inhaled Oxygen Concentration - - Weight 100.9 kg (222 lb 8 oz) 05/02/2019 9:37 AM CDT Height 162.6 cm (5' 4") 05/02/2019 9:37 AM CDT Body Mass Index 38.19 05/02/2019 9:37 AM CDT documented in this encounter Progress Notes Osmani Barreto, LENNY - 05/02/2019 9:00 AM CDT Chief complaint: Chief Complaint Patient presents with Care HPI CC: Follow Up Visit Patricia Stone is a 28 year old, , /White female. Patient's last menstrual period was 03/10/2019 (exact date). She is 7w4d with an intrauterine . Her estimated date of delivery is 12/15/2019, by Last Menstrual Period. She has no complaints today. She denies FM, contractions, LOF and bleeding today. Patient denies current or past physical, sexual or emotional abuse. Histories OB History Para Term [...] file Gets together: Not on file Attends mormon service: Not on file Active member of [...] Pt states she feels safe at home. Christian preference none. Patient lives with children. Social History Substance and Sexual Activity Sexual Activity Yes Partners: Male control/protection: Pill Comment: last sexual intercourse 04/13/2019 Labs No new labs Radiology Radiology pending. Allergies Patricia is allergic to sulfa (sulfonamide antibiotics). Medications Patricia has a current medication list which includes the following prescription( s): blood sugar diagnostic, blood-glucose meter, lancets, vit 33-iron- folic-dha, hydrochlorothiazide, and thyroid (pork). Review of Systems Eyes: Negative for visual disturbance. Cardiovascular: Negative for leg swelling. Gastrointestinal: Negative for abdominal pain, nausea and vomiting. Genitourinary: Negative for vaginal bleeding, vaginal discharge and pelvic pain. Neurological: Negative for headaches. BP 129/82 (BP Location: Right arm, Patient Position: Sitting, BP CUFF SIZE: Adult Medium) | Pulse 91 | Temp 37.2 C (98.9 F) (Oral) | Resp 16 | Ht 5 ' 4" (1.626 m) | Wt 222 lb 8 oz (100.9 kg) |LMP 03/10/2019 (Exact Date) | BMI 38.19 kg/m Pregravid BMI: 37.9 Physical Exam PHYSICAL: General Exam: Neurological: Normal Abdomen: Normal Extremities: Normal Pelvic Exam: Uterus: 8cm Weeks Assessment/Plan Supervision of high risk in first trimester (primary encounter diagnosis) Previous delivery affecting , antepartum History of hypothyroidism Multiparity Comment: Routine Visit Plan: POCT URINALYSIS W SPECIFIC GRAVITY, POCT URINALYSIS W SPECIFIC GRAVITY Denies zika virus risk, signs and symptoms such as fever,rash,joint pain, conjunctivitis (red eyes), muscle pain, headaches; outside [place] travel to areas affected by zika, and FOB exposure to zika.Educated on use of mosquito repellent. Diet controlled gestational diabetes mellitus (GDM) in first trimester Comment: GDM log reviewed fasting and all over 93, 2 Hr PP range from 84-136 (3 out of 18 were elevated) Plan: readings reviewed by Dr. Alcocer orders for patient to continue to monitor blood sugar over the next week and the High Risk HEALTH BENEFITS SPECIALIST will assess readings at NH. Return to clinic in 1 week. Discussed treatment options. Medications as ordered. Reviewed patient instructions and provided printed copy. This visit did not involve counseling and coordination that comprised more than 50% of the visit time. LENNY Frey 05/02/2019 11:59 AM documented in this encounter Plan of Treatment Date Type Specialty Care Team Description 05/09/2019 Routine Visit OB Satellites Risk, Dlx-Btzrx-Ac/High 05/14/2019 Routine Visit OB Satellites Osmani Barreto, MAILER [address] [place], [place] [phone] 05/20/2019 City Director Visit Maternal Medicine Name Type Priority Associated Diagnoses Order Schedule POCT URINALYSIS W LAB Routine Supervision of high risk 20 Occurrences starting SPECIFIC GRAVITY in first 05/02/2019 until trimester 02/26/2020, 1 completed Health Maintenance Due Date Last Done Comments INFLUENZA VACCINE 05/26/2019 PAP SMEAR 04/16/2022 04/16/2019, 06/13/2017, 06/26/2014, Additional history exists DTaP,Tdap,and Td Vaccines 06/26/2024 06/26/2014 (2 - Td) PNEUMOCOCCAL 0-64 YEARS Aged Out No longer eligible COMBINED SERIES based on patient's age to complete this topic documented as of this encounter Procedures Procedure Name Priority Date/Time Associated Diagnosis Comments POCT URINALYSIS Routine 05/02/2019 9:39 AM Supervision of high Results for this CDT risk in procedure are in first trimester the results section. documented in this encounter Results POCT URINALYSIS W SPECIFIC GRAVITY (05/02/2019 9:39 AM CDT) POCT U SP GRAV . 1.005 - 1.025 mg/dl POCT PH U . 5 - 8 mg/dl POCT U LEUK EST . Negative - Negative POCT U NIT . Negative - Negative POCT U PROT trace Negative - Negative POCT U GLU neg Negative - Negative POCT U KETONE . Negative - Negative POCT U UROBILI . 0.2 - 1 mg/dl POCT U BILI . Negative - Negative POCT U BLD . Negative - Negative POCT U COLOR POCT U APPEAR Specimen Urine - URINE, CLEAN CATCH documented in this encounter Visit Diagnoses Diagnosis Supervision of high risk in first trimester - Primary Unspecified high-risk Previous delivery affecting , antepartum Previous delivery, antepartum condition or complication History of hypothyroidism Personal history of other endocrine, metabolic, and immunity disorders Multiparity Diet controlled gestational diabetes mellitus (GDM) in first trimester documented in this encounter Insurance Payer Benefit Plan / Subscriber ID Effective Phone Address Type Group Dates [facility] xxxxxxxxx 2019-Vickie PAIGE Medicaid HEALTH CHOICE - HEALTH CHOICE [id number] MANAGED MEDICAID [place], [place] MED[place] [phone] documented as of this encounter Advance Directives Name Relationship Healthcare Agent Relationship Communication Lizz Haugan Sibling Primary healthcare agent
--- OUTSIDE RECORDS SUMMARY | 2019-05-26 15:55 | XMS REPORT | Summary of Care ---
:1990 Author Organization [facility] Address [address] [place] [address] Care Team Providers Name Role Phone Osmani Barreto DECKHAND SPONGE [employer]AT Primary Care Provider Encounter Details Date Type Department Care Team Description 05/02/2019 Orders Only [facility] Doctor Unassigned, No [address] [facility] Name [place] [id number] [address] [place] [phone] Allergies Active Allergy Reactions Severity Noted Date [...] 1 Packet 30 Each 6 04/18/2019 Active 33-koej-aaztk-dha by mouth (SELECT-OB + DHA) 29 mg [...] exam 06/09/2015 04/16/2019 Overview: ICD10 Diagnosis Term Ocean Freight Manager Utility Morbid obesity 06/09/2015 06/13/2017 Overview: ICD10 Diagnosis Term Ocean Freight Manager Utility Other malaise and fatigue 06/09/2015 06/10/2016 Overweight 06/06/2013 06/09/2015 Overview: ICD10 Diagnosis Term Ocean Freight Manager Utility delivery delivered 04/16/2011 02/21/2014 Overview: ICD10 Diagnosis Term Ocean Freight Manager Utility documented as of this encounter [...] Care Team Description 05/09/2019 Routine Visit OB Praveenas Cynthia Moore-Np/ 05/14/2019 Routine Visit OB Satellites Osmani Barreto, DECKHAND SPONGE BOAT [address] [place] [address] [phone] 05/20/2019 Labor Commissioner Visit Maternal Medicine Health Maintenance Due Date Last Done Comments INFLUENZA VACCINE 05/26/2019 PAP SMEAR 04/16/2022 04/16/2019, 06/13/2017, 06/26/2014, Additional history exists DTaP,Tdap,and Td Vaccines 06/26/2024 06/26/2014 (2 - Td) PNEUMOCOCCAL 0-64 YEARS Aged Out No longer eligible COMBINED SERIES based on patient's age to complete this topic documented as of this encounter Procedures Procedure Name Priority Date/Time Associated Diagnosis Comments PATIENT CORRESPONDENCE Routine 05/02/2019 12:01 AM (LETTERS, USPS CDT DOCUMENTATION) documented in this encounter Results Not on filedocumented in this encounter Insurance Payer Benefit Plan / Subscriber ID Effective Phone Address Type Group [facility] xxxxxxxxx 2019-Vickie PAIGE Medicaid HEALTH CHOICE - HEALTH CHOICE nt [id number] MANAGED MEDICAID [place], [place] [phone] documented as of this encounter Advance Directives Name Relationship Healthcare Agent Relationship Communication Lizz Stone Sibling Primary healthcare agent
--- OUTSIDE RECORDS SUMMARY | 2019-05-26 15:55 | XMS REPORT | Summary of Care ---
:1990 Author Organization [facility] Address [address] [place] [address] Care Team Providers Name Role Phone Osmani Barreto Primary Care Provider Reason for Visit Reason Comments Care MFM Visit Encounter Details Date Type Department Care Team Description 05/09/2019 Routine [facility]- Kamala Omer [address] [place] [address] Pregestational diabetes mellitus, modified White class B ( Primary Dx); Visit [place] Filiberto MooreGpc-Vypwa-Ir/High Supervision of high risk in first trimester; [address] Previous delivery affecting , antepartum; [place], [place] Hypothyroidism affecting in first trimester; [address] Obesity affecting in first trimester; [phone] Pre-existing essential hypertension during in first trimester Allergies Active Allergy Reactions Severity Noted Date Comments Sulfa (Sulfonamide Antibiotics) Rash High 04/16/2019 documented as of this encounter (statuses as of 05/09/2019) Medications Medication Sig Dispensed Refills Start Date End Date Status Thyroid, Pork, (ARMOUR Take 180 mg by 0 Active THYROID) 120 mg tablet mouth daily. HYDROCHLOROTHIAZIDE ORAL Take by 0 Active mouth. vit Take 1 Packet 30 Each 6 04/18/2019 Active 81-qolx-wgddi-dha by mouth (SELECT-OB + DHA) 29 mg [...] 04/26/2019 Active strip to check glucose 4X/daily. glyBURIDE 2.5 mg Take 1 tablet 30 tablet 2 05/09/2019 Active tabletIndications: by mouth every Pregestational diabetes evening. mellitus, modified White class B documented as of this encounter (statuses as of 05/09/2019) Active Problems Problem Noted Date Cervical high [...] as of this encounter (statuses as of 05/09/2019) Resolved Problems Problem Noted Date Resolved Date Elevated blood pressure reading without diagnosis of 06/10/2016 04/16/2019 hypertension Hypothyroidism 06/10/2016 04/16/2019 Prehypertension 06/09/2015 04/16/2019 Other general counseling and advice for contraceptive 06/09/2015 06/09/2015 management Contraceptive management 06/09/2015 04/16/2019 Well woman exam 06/09/2015 04/16/2019 Overview: ICD10 Diagnosis 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 Morbid obesity 06/09/2015 06/13/2017 Overview: ICD10 Diagnosis 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 Other malaise and fatigue 06/09/2015 06/10/2016 Overweight 06/06/2013 06/09/2015 Overview: ICD10 Diagnosis 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 delivery delivered 04/16/2011 02/21/2014 Overview: ICD10 Diagnosis 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 documented as of this encounter (statuses as of 05/09/2019) Immunizations Name Administration Dates Next Due Rubella [...] Sign Reading Time Taken Comments Blood Pressure 118/76 05/09/2019 9:23 AM CDT Pulse 87 05/09/2019 9:17 AM CDT Temperature 36.6 C (97.9 F) 05/09/2019 9:17 AM CDT Respiratory Rate 18 05/09/2019 9:17 AM CDT Oxygen Saturation - - Inhaled Oxygen Concentration - - Weight 99.1 kg (218 lb 8 oz) 05/09/2019 9:17 AM CDT Height 160 cm (5' 3") 05/09/2019 9:17 AM CDT Body Mass Index 38.71 05/09/2019 9:17 AM CDT documented in this encounter Progress Notes Kamala Omer - 05/09/2019 9:00 AM CDT Chief complaint: Chief Complaint Patient presents with Care MFM Visit HPI Patricia Stone is a 28 year old WF who is 8w4d with IUP. Her Estimated Date of Delivery:12/15/19 by LMP. Denies headache, n/v,sob, cp, bleeding,lof and abdominal pain. Histories OB History Para Term AB Living 3 2 2 2 SAB TAB Ectopic Multiple Live Births 2 # Outcome Date GA Lbr Laci/2nd Weight Sex Delivery Anes PTL Lv 3 Current 2 Term 04/15/11 39w0d F SEC YOSEPH Complications: Other (See Comments) 1 Term 01/05/06 40w0d F VAGINAL YOSEPH Past Medical History: Diagnosis Date Chlamydia 2010 [...] Last attempt to quit: 08/25/2010 Years since quittin.7 Smokeless tobacco: Never Used Substance and Sexual Activity Alcohol use: No Drug use: No Sexual activity: Yes Partners: Male control/protection: Pill Comment: last sexual intercourse 04/13/2019 Lifestyle Physical activity: Days per week: Not on file Minutes per session: Not on file Stress: Not on file Relationships Social connections: Talks on phone: Not on file Gets together: Not on file Attends yazidism service: Not on file Active member of [...] Pt states she feels safe at home. Hoahaoism preference none. Patient lives with children. Social History Substance and Sexual Activity Sexual Activity Yes Partners: Male control/protection: Pill Comment: last sexual intercourse 04/13/2019 Labs No new labs Radiology No new radiology. Allergies Crystal is allergic to sulfa (sulfonamide antibiotics). Medications Crystal has a current medication list which includes the following prescription( s): glyburide, bloodsugar diagnostic, blood-glucose meter, lancets, vit 90-zhgc-cieej-dha, hydrochlorothiazide,and thyroid (pork). Review of Systems See HPI BP 118/76 (BP Location: Left arm, Patient Position: Sitting, BP CUFF SIZE: Adult Medium) | Pulse 87 | Temp 36.6 C (97.9 F) (Oral) | Resp 18 | Ht 5' 3" (1.6 m) | Wt 218 lb 8 oz (99.1 kg) | LMP03/10/2019 (Exact Date) | BMI 38.71 kg/m Pregravid BMI: 39.2 Physical Exam CONSTITUTIONAL: no apparent distress, appearing age-appropriate. GASTROINTESTINAL: abdomen soft, nontender, . NEUROLOGICAL/PSYCHIATRIC: alert, awake, and oriented x 3. Normal mood and affect. EXTREMITIES: No calf tenderness bilaterally.no pitting edema bilaterally. Musculoskeletal: no clubbing, cyanosis or edema, peripheral pulses 2+ in all extremities No results found for this or any previous visit. Assessment/Plan at 8w4d Pregestational diabetes mellitus, modified White class B (primary encounter diagnosis) Comment: diagnosed with DM in early . Only on diet. A1C 5.1% Foot exam nml BS log reviewed today-fastings more than 50% elevations. 2hpp nml Plan: glyBURIDE 2.5 mg tablet, CREATININE U 24 HR, PROTEIN QUANT U/24H, CREATININE CLEARANCE, COMP. METABOLIC PANEL (85795) Supervision of high risk in first trimester Comment: 8w4d Plan: POCT URINALYSIS W SPECIFIC GRAVITY Had dating usg appointment 05/20/19 Previous delivery affecting , antepartum Comment: OB History Para Term AB Living 3 2 2 2 SAB TAB Ectopic Multiple Live Births 2 # Outcome Date GA Lbr Laci/2nd Weight Sex Delivery Anes PTL Lv 3 Current 2 Term 04/15/11 39w0d F SEC YOSEPH Complications: Other (See Comments) 1 Term 01/05/06 40w0d F VAGINAL YOSEPH Plan: awaiting op report Hypothyroidism affecting in first trimester Comment: on meds. Plan: check TFTs after 20wks and then q4wks Obesity affecting in first trimester Comment: twg goal discussed Plan: monitor weight gain Pre-existing essential hypertension during in first trimester Comment: not on any meds. Bp today wnl Plan: CREATININE U 24 HR, PROTEIN QUANT U/24H, CREATININE CLEARANCE, COMP. METABOLIC PANEL (25379) Continue to monitor bp closely ER warnings given RTC 1wk This visit did not involve counseling and coordination that comprised more than 50% of the visit time. documented in this encounter Plan of Treatment Date Type Specialty Care Team Description 05/16/2019 Routine Visit OB Satellites Risk, Rhf-Aphna-Zk/Hig h 05/20/2019 Inserter Promotional Item Visit Maternal Medicine Name Type Priority Associated Diagnoses Order Schedule CREATININE U 24 HR LAB Routine Pregestational diabetes 1 Occurrences starting mellitus, modified White 05/09/2019 until class B 06/24/2019 Pre-existing essential hypertension during in first trimester PROTEIN QUANT U/24H LAB Routine Pregestational diabetes 1 Occurrences starting mellitus, modified White 05/09/2019 until class B 06/24/2019 Pre-existing essential hypertension during in first trimester CREATININE CLEARANCE LAB Routine Pregestational diabetes 1 Occurrences starting mellitus, modified White 05/09/2019 until class B 06/24/2019 Pre-existing essential hypertension during in first trimester COMP. METABOLIC PANEL LAB Routine Pregestational diabetes 1 Occurrences starting (90379) mellitus, modified White 05/09/2019 until class B 06/24/2019 Pre-existing essential hypertension during in first trimester Health Maintenance Due Date Last Done Comments PNEUMOCOCCAL 0-64 YEARS COMBINED 1994 SERIES (1 of 1 - PPSV23) EYE EXAM 1998 URINE MICROALBUMIN 1998 FOOT EXAM 2006 CREATININE (SERUM) 04/14/2012 04/14/2011, 11/29/2010 LDL-C 06/09/2016 06/09/2015 INFLUENZA VACCINE (#1) 2019 HgA1C 10/26/2019 04/25/2019 PAP SMEAR 04/16/2022 04/16/2019, 06/13/2017, 06/26/2014, Additional history exists DTaP,Tdap,and Td Vaccines (2 - Td) 06/26/2024 06/26/2014 documented as of this encounter Procedures Procedure Name Priority Date/Time Associated Diagnosis Comments POCT URINALYSIS Routine 05/09/2019 9:19 AM Supervision of high Results for this CDT risk in procedure are in first trimester the results section. documented in this encounter Results POCT URINALYSIS W SPECIFIC GRAVITY (05/09/2019 9:19 AM CDT) POCT U SP GRAV . 1.005 - 1.025 mg/dl POCT PH U 5 5 - 8 mg/dl POCT U LEUK EST neg Negative - Negative POCT U NIT neg Negative - Negative POCT U PROT neg Negative - Negative POCT U GLU neg Negative - Negative POCT U KETONE neg Negative - Negative POCT U UROBILI . 0.2 - 1 mg/dl POCT U BILI . Negative - Negative POCT U BLD neg Negative - Negative POCT U COLOR POCT U APPEAR Specimen Urine - URINE, CLEAN CATCH documented in this encounter Visit Diagnoses Diagnosis Pregestational diabetes mellitus, modified White class B - Primary Diabetes mellitus of mother, complicating , childbirth, or the puerperium, unspecified as to episode of care Supervision of high risk in first trimester Unspecified high-risk Previous delivery affecting , antepartum Previous delivery, antepartum condition or complication Hypothyroidism affecting in first trimester Obesity affecting in first trimester Pre-existing essential hypertension during in first trimester documented in this encounter Insurance Payer Benefit Plan / Subscriber ID Effective Phone Address Type Group [facility] xxxxxxxxx 2019-Vickie PAIGE Medicaid HEALTH [place] - [place] [employer] [id number] [facility] MEDICAID [place], [place] MEDICAID [phone] documented as of this encounter Advance Directives Name Relationship Healthcare Agent Relationship Communication Lizz Stone Sibling Primary healthcare agent
--- OUTSIDE RECORDS SUMMARY | 2019-05-26 15:55 | XMS REPORT | Summary of Care ---
:1990 Author Organization [facility] Address [address] [place] [address] Care Team Providers Name Role Phone Osmani Barreto Primary Care Provider Reason for Visit Reason Comments Care Encounter Details Date Type Department Care Team Description [facility] [address] [place] [address] Pre-existing essential hypertension during in first trimester (Primary Dx); Visit Filiberto Wells-Rmchp-Np/ Supervision of high risk in first trimester; [address] Pregestational diabetes mellitus, modified White class B; [place], [place] Hypothyroidism affecting in first trimester; [address] Nausea and vomiting during prior to 22 weeks gestation; [phone] Heartburn during , antepartum Allergies Active Allergy Reactions Severity Noted Date Comments Sulfa (Sulfonamide Antibiotics) Rash High 04/16/2019 documented as of this encounter (statuses as of 05/19/2019) Medications Medication Sig Dispensed Refills Start Date End Date Status Thyroid, Pork, (ARMOUR Take 180 mg by 0 Active THYROID) 120 mg tablet mouth daily. HYDROCHLOROTHIAZIDE ORAL Take by 0 Active mouth. vit Take 1 Packet 30 Each 6 04/18/2019 Active 00-zjzi-aencw-dha by mouth (SELECT-OB + DHA) 29 mg [...] diabetes evening. mellitus, modified White class B proMETHazine 25 mg Take 1 tablet 30 tablet 1 05/16/2019 Active tabletIndications: Nausea by mouth every and vomiting during 4 (four) hours prior to 22 as needed for weeks gestation Nausea and Vomiting (N/V). pantoprazole (PROTONIX) 40 Take 1 tablet 30 tablet 5 05/16/2019 Active mg EC tabletIndications: by mouth Heartburn during daily. 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) DNA [...] as of this encounter (statuses as of 05/19/2019) Resolved Problems Problem Noted Date Resolved Date Elevated blood pressure reading without diagnosis of 06/10/2016 04/16/2019 hypertension Hypothyroidism 06/10/2016 04/16/2019 Prehypertension 06/09/2015 04/16/2019 Other general counseling and advice for contraceptive 06/09/2015 06/09/2015 management Contraceptive management 06/09/2015 04/16/2019 Well woman exam 06/09/2015 04/16/2019 Overview: ICD10 Diagnosis 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 Morbid obesity 06/09/2015 06/13/2017 Overview: ICD10 Diagnosis 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 Other malaise and fatigue 06/09/2015 06/10/2016 Overweight 06/06/2013 06/09/2015 Overview: ICD10 Diagnosis 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 delivery delivered 04/16/2011 02/21/2014 Overview: ICD10 Diagnosis 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 documented as of this encounter (statuses as of 05/19/2019) Immunizations Name Administration Dates Next Due Rubella [...] Sign Reading Time Taken Comments Blood Pressure 122/80 05/16/2019 1:35 PM CDT Pulse - - Temperature 36.8 C (98.2 F) 05/16/2019 1:35 PM CDT Respiratory Rate 16 05/16/2019 1:35 PM CDT Oxygen Saturation - - Inhaled Oxygen Concentration - - Weight 101.2 kg (223 lb) 05/16/2019 1:35 PM CDT Height 160 cm (5' 3") 05/16/2019 1:35 PM CDT Body Mass Index 39.5 05/16/2019 1:35 PM CDT documented in this encounter Progress Notes Maranda Shin, CNP - 05/16/2019 1:00 PM CDT Chief complaint: Chief Complaint Patient presents with Care HPI CC: Follow Up Visit Patricia Stone is a 28 year old, , /White female. Patient's last menstrual period was 03/10/2019 (exact date). She is 9w4d with an intrauterine . Her estimated date of delivery is 12/15/2019, by Last Menstrual Period. Dm, taking glyburide 2.5mg qHS. Hypothyroid, taking levothyroxine. CHTN, no meds. Denies all tox s/s. C/o heartburn today Histories OB History Para Term AB Living [...] file Gets together: Not on file Attends voodoo service: Not on file Active member of [...] Pt states she feels safe at home. Quaker preference none. Patient lives with children. Social History Substance and Sexual Activity Sexual Activity Yes Partners: Male control/protection: Pill Comment: last sexual intercourse 04/13/2019 Labs Labs are pending. Radiology No new radiology. Allergies Patricia is allergic to sulfa (sulfonamide antibiotics). Medications Patricia has a current medication list which includes the following prescription( s): pantoprazole, promethazine, glyburide, blood sugar diagnostic, blood- glucose meter, lancets, vit 59-uknu-eyjaz-dha, hydrochlorothiazide, and thyroid (pork). Review of Systems Gastrointestinal: Heartburn All other systems reviewed and are negative. BP 122/80 (BP Location: Right arm, Patient Position: Sitting, BP CUFF SIZE: Adult Large) | Temp 36.8 C (98.2 F) (Oral) | Resp 16 | Ht 5' 3" (1.6 m) | Wt 223 lb (101.2 kg) | LMP 03/10/2019 (Exact Date) | BMI 39.50 kg/m Pregravid BMI: 39.2 Physical Exam PHYSICAL: General Exam: Neurological: Normal Alert, oriented to person, place, time, and situation Abdomen: Normal Soft, non-tender, gravid Extremities: Normal No edema noted Assessment/Plan at 9w4d Pregestational diabetes mellitus, modified White class B (primary encounter diagnosis) Comment: diagnosed with DM in early . Only on diet. A1C 5.1% Foot exam nml. Pt started on glyburide 2.5mg at last visit - BG log reviewed today -adequate control, continue current regimen. Plan:continue glyBURIDE 2.5 mg tablet. RTC 2wks Supervision of high risk in first trimester Comment: 9w4d Plan: POCT URINALYSIS W SPECIFIC GRAVITY Had [...] QUANT U/24H, CREATININE CLEARANCE, COMP. METABOLIC PANEL ordered today ([id number]) Continue to monitor bp closely Heartburn Unresolved with tums or pepcid Rx today protonix 40mg daily ER warnings given RTC 2wks This visit did not involve counseling and coordination that comprised more than 50% of the visit time. 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 05/30/2019 Routine Visit OB Satellites Risk, Bte-Qrtyl-Xf/Hig h Health Maintenance Due Date Last Done Comments PNEUMOCOCCAL 0-64 YEARS COMBINED 1994 SERIES (1 of 1 - PPSV23) EYE EXAM 1998 URINE MICROALBUMIN 1998 FOOT EXAM 2006 LDL-C 06/09/2016 06/09/2015 INFLUENZA VACCINE (#1) 2019 HgA1C 10/26/2019 04/25/2019 CREATININE (SERUM) 05/16/2020 05/16/2019, 04/14/2011, 11/29/2010 PAP SMEAR 04/16/2022 04/16/2019, 06/13/2017, 06/26/2014, Additional history exists DTaP,Tdap,and Td Vaccines (2 - Td) 06/26/2024 06/26/2014 documented as of this encounter Procedures Procedure Name Priority Date/Time Associated Diagnosis Comments CREATININE Routine 05/16/2019 1:44 Pregestational Results for this CLEARANCE PM CDT diabetes mellitus, procedure are in modified White class B the results Pre-existing essential section. hypertension during in first trimester COMP. METABOLIC Routine 05/16/2019 1:44 Pregestational Results for this PANEL (19352) PM CDT diabetes mellitus, procedure are in modified White class B the results Pre-existing essential section. hypertension during in first trimester PROTEIN QUANT U/24H Routine 05/16/2019 1:44 Pregestational Results for this PM CDT diabetes mellitus, procedure are in modified White class B the results Pre-existing essential section. hypertension during in first trimester CREATININE U 24 HR Routine 05/16/2019 1:44 Pregestational Results for this PM CDT diabetes mellitus, procedure are in modified White class B the results Pre-existing essential section. hypertension during in first trimester POCT URINALYSIS Routine 05/16/2019 1:38 Supervision of high Results for this PM CDT risk in procedure are in first trimester the results section. documented in this encounter Results CREATININE CLEARANCE (05/16/2019 1:44 PM CDT) HR COLLECT 24 Hours [facility] T. VOL U 1,300 mL [facility] CREAT U 112.5 mg/dL [facility] CREAT CL 166 >=70 mL/min [facility] Specimen Urine - URINE, CLEAN CATCH Performing Organization Address City/State/Zipcode Phone Number [facility] CLIA: [id number], [address] [place] [phone] [facility] COMP. METABOLIC PANEL (50370) (05/16/2019 1:44 PM CDT) NA 138 135 - 145 [facility] mmol/L SERVICES K 4.5 3.5 - 5.0 [facility] mmol/L SERVICES CL 107 98 - 108 mmol/L [facility] CO2 TOTAL 25 23 - 31 mmol/L [facility] AGAP 6 2 - 16 [facility] BUN 13 7 - 23 mg/dL [facility] GLUCOSE 87 70 - 110 mg/dL [facility] CREATININE 0.61 0.50 - 1.04 [facility] mg/dL SERVICES TOTAL BILI 0.4 0.1 - 1.1 mg/dL [facility] CALCIUM 9.1 8.6 - 10.6 [facility] mg/dL SERVICES T PROTEIN 7.0 6.3 - 8.2 g/dL [facility] ALBUMIN 3.7 3.5 - 5.0 g/dL [facility] ALK PHOS 70 34 - 122 U/L [facility] ALT(SGPT) 56 (H) 9 - 51 U/L [facility] AST(SGOT) 39 13 - 40 U/L [facility] eGFR Calculation 115.2 mL/min/1.73m2 [facility] (Non-) SERVICES eGFR Calculation 139.6 mL/min/1.73m2 [facility] () SERVICES Specimen Blood Narrative Performed At Association of Glomerular Filtration Rate (GFR) and Staging [facility] of Kidney Disease* + + + + | GFR (mL/min/1.73 m2)| With Kidney Damage|Without Kidney Damage + + + + |>90|Stage one| Normal + + + + |60-89|Stage two| Decreased GFR + + + + |30-59|Stage three| Stage three + + + + |15-29|Stage four | Stage four + + + + |<15 (or dialysis)|Stage five | Stage five + + + + *Each stage assumes the associated GFR level has been in effect for at least three months.Stages 1 to 5, with or without kidney disease, indicate chronic kidney disease. Notes: Determination of stages one and two (with eGFR >59mL/min/1.73 m2) requires estimation of kidney damage for at least three months as defined by structural or functional abnormalities of the kidney, manifested by either: Pathological abnormalities or Markers of kidney damage (including abnormalities in the composition of the blood or urine or abnormalities in imaging tests). Performing Organization Address City/[facility]/[place] Phone Number [facility] CLIA: [id number], [address] [place] [phone] [facility] PROTEIN QUANT U/24H (05/16/2019 1:44 PM CDT) T. VOL U 1,300 mL [facility] HR COLLECT 24 Hours [facility] T. PROT U 7 mg/dL [facility] PRO U/24HR 91 <150 mg/24h [facility] Specimen Urine - URINE, CLEAN CATCH Performing Organization Address [facility]/Zipcode Phone Number [facility] CLIA: [id number], [address] [place] [address] [phone] [facility] CREATININE U 24 HR (05/16/2019 1:44 PM CDT) T. VOL U 1,300 mL [facility] HR COLLECT 24 Hours [facility] CREAT U 112.5 mg/dL [facility] CREA U/24H 1.5 0.8 - 1.8 g/24H [facility] Specimen Urine - URINE, CLEAN CATCH Performing Organization Address City/State/Zipcode Phone Number [facility] CLIA: [id number], [address] [place] [address] [phone] [facility] POCT URINALYSIS W SPECIFIC GRAVITY (05/16/2019 1:38 PM CDT) POCT U SP GRAV . 1.005 - 1.025 mg/dl POCT PH U 5 5 - 8 mg/dl POCT U LEUK EST Neg Negative - Negative POCT U NIT Neg Negative - Negative POCT U PROT Trace Negative - Negative POCT U GLU Neg Negative - Negative POCT U KETONE None Negative - Negative POCT U UROBILI . 0.2 - 1 mg/dl POCT U BILI . Negative - Negative POCT U BLD Neg Negative - Negative POCT U COLOR POCT U APPEAR Specimen Urine - URINE, CLEAN CATCH documented in this encounter Visit Diagnoses Diagnosis Pre-existing essential hypertension during in first trimester - Primary Supervision of high risk in first trimester Unspecified high-risk Pregestational diabetes mellitus, modified White class B Diabetes mellitus of mother, complicating , childbirth, or the puerperium, unspecified as to episode of care Hypothyroidism affecting in first trimester Nausea and vomiting during prior to 22 weeks gestation Heartburn during , antepartum documented in this encounter Insurance Payer Benefit Plan / Subscriber ID Effective Phone Address Type Group [facility] xxxxxxxxx 2019-Vickie PAIGE Medicaid HEALTH [employer] - HEALTH [employer] [id number] MANAGED MEDICAID [place], [place] MEDICAID [phone] documented as of this encounter Advance Directives Name Relationship Healthcare Agent Relationship Communication Lizz Walkerford Sibling Primary healthcare agent [phone] ([place])
--- OUTSIDE RECORDS SUMMARY | 2019-05-26 15:55 | XMS REPORT | Summary of Care ---
:1990 Author Organization [facility] Address [address] [place] [address] Care Team Providers Name Role Phone Frankie Mckenzie MD Primary Care Provider Reason for Visit Reason Comments Care Encounter Details Date Type Department Care Team Description 04/25/2019 Routine [facility]- Frankie Mckenzie MD [address] [place] [address] Supervision of high Visit [place] Faculty, [facility] risk in [address] [facility] first trimester [place], [place] (Primary Dx) [address] Allergies Active Allergy [...] 1 Packet 30 Each 6 04/18/2019 Active 08-ppgm-agsnp-dha by mouth (SELECT-OB + DHA) 29 mg [...] exam 06/09/2015 04/16/2019 Overview: ICD10 Diagnosis Term Wax Specialist Utility Morbid obesity 06/09/2015 06/13/2017 Overview: ICD10 Diagnosis Term Wax Specialist Utility Other malaise and fatigue 06/09/2015 06/10/2016 Overweight 06/06/2013 06/09/2015 Overview: ICD10 Diagnosis Term Wax Specialist Utility delivery delivered 04/16/2011 02/21/2014 Overview: ICD10 Diagnosis Term Wax Specialist Utility documented as of this encounter (statuses [...] 04/25/2019 4:00 PM CDT PATRICIA KNAPP #: [id number] Date of service: 04/25/2019 12:17 Routine Visit [...] file Gets together: Not on file Attends religion service: Not on file Active member of [...] (Exact Date) | BMI 39.24 kg/m Normalized qypoxrj-ybg-iut data not available for patients older than 20 years. Normalized tnynvx-lyg-vzg data not available for patients older than [...] organisms - suggests endogenous microbial contamination Final Ssis Ssrs Developer Visit on 04/22/2019 Component Date Value Ref [...] Use as directed 100 Each 9 vit 96-ucfm-blmfd-dha (SELECT-OB + DHA) 29 mg iron-1 mg [...] by or maternal indications and discussed by [facility] faculty Hypothyroidism: Used to see a [...] Team Description 05/02/2019 Routine Visit OB Satellites Abbie Barretojavid Soares, REAL ESTATE ASSOCIATE ATTORNEY [address] [place] [address] [phone] 05/14/2019 Routine Visit OB Satellites Estevan Osmani Soares, REAL ESTATE ASSOCIATE ATTORNEY [address] [place] [address] [phone] 05/20/2019 Ssis Ssrs Developer Visit Maternal Medicine Name Type Priority Associated Diagnoses Date/Time GLYCOSYLATED HEMOGLOBIN LAB Routine Supervision of high risk 04/25/2019 12: 25 PM (A1C) in first CDT trimester THYROID STIMULATING LAB Routine Supervision of high risk 04/25/2019 12:55 PM HORMONE in first CDT trimester FREE T4 LAB Routine Supervision of high risk 04/25/2019 12:55 PM in first CDT trimester Health Maintenance Due [...] ID Effective Phone Address Type Group Dates [facility] xxxxxxxxx 2019-Vickie PAIGE Medicaid HEALTH CHOICE - HEALTH Music Dealers [id number] [facility] MEDICAID [place], [place] MEDICAID [phone] documented as of this encounter Advance Directives Name Relationship Healthcare Agent Relationship Communication Lizz Knapp Sibling Primary healthcare agent
--- OUTSIDE RECORDS SUMMARY | 2019-05-26 15:55 | XMS REPORT | Summary of Care ---
:1990 Author Organization [facility] Address [address] [place] [address] Care Team Providers Name Role Phone Frankie Mckenzie MD Primary Care Provider Reason for Visit Reason Comments Diabetic Education GDM Encounter Details Date Type Department Care Team Description 04/25/2019 Nurse Visit [facility]- Frankie Mckenzie MD [address] [place] [address] Diet controlled Orange Visit, [facility] Nurse gestational diabetes [address] mellitus (GDM) in [place], [place] first trimester [address] (Primary Dx) [phone] Allergies Active Allergy Reactions Severity Noted Date Comments Sulfa (Sulfonamide Antibiotics) Rash High 04/16/2019 documented as of this encounter (statuses as of 04/26/2019) Medications Medication Sig Dispensed Refills Start Date End Date Status Thyroid, Pork, (ARMOUR Take 180 mg by 0 Active THYROID) 120 mg tablet mouth daily. HYDROCHLOROTHIAZIDE ORAL Take by 0 Active mouth. vit Take 1 Packet 30 Each 6 04/18/2019 Active 53-xboi-bubgo-dha by mouth (SELECT-OB + DHA) 29 mg [...] as of this encounter (statuses as of 04/26/2019) Active Problems Problem Noted Date Cervical high risk human papillomavirus (HPV) DNA test positive 04/18/2019 Overview: Normal pap Smear-> Needs Cotesting @12 months or HPV DNA Typing High risk , antepartum 04/16/2019 Previous delivery affecting , antepartum 04/16/2019 Multiparity 04/16/2019 History of hypothyroidism 04/16/2019 Nausea without vomiting 04/16/2019 Obesity in 06/13/2017 Comments Yes documented as of this encounter (statuses as of 04/26/2019) Resolved Problems Problem Noted Date Resolved Date Elevated blood pressure reading without diagnosis of 06/10/2016 04/16/2019 hypertension Hypothyroidism 06/10/2016 04/16/2019 Prehypertension 06/09/2015 04/16/2019 Other general counseling and advice for contraceptive 06/09/2015 06/09/2015 management Contraceptive management 06/09/2015 04/16/2019 Well woman exam 06/09/2015 04/16/2019 Overview: ICD10 Diagnosis Term Net Software Developer Utility Morbid obesity 06/09/2015 06/13/2017 Overview: ICD10 Diagnosis Term Net Software Developer Utility Other malaise and fatigue 06/09/2015 06/10/2016 Overweight 06/06/2013 06/09/2015 Overview: ICD10 Diagnosis Term Net Software Developer Utility delivery delivered 04/16/2011 02/21/2014 Overview: ICD10 Diagnosis Term Net Software Developer Utility documented as of this encounter (statuses as of 04/26/2019) Immunizations Name Administration Dates Next Due Rubella 03/22/2007 Tdap 06/26/2014 documented as of this encounter Social History Tobacco Use Types Packs/Day Years Used Date Former Smoker Quit: 08/25/2010 Smokeless Tobacco: Never Used Alcohol Use Drinks/Week oz/Week Comments No Comments Yes Sex Assigned at Date Recorded Not on file Job Start Date Occupation Industry Not on file Not on file Not on file Travel History Travel Start Travel End No recent travel history available. documented as of this encounter Last Filed Vital Signs Vital Sign Reading Time Taken Comments Blood Pressure 118/80 04/26/2019 8:55 AM CDT Pulse 80 04/26/2019 8:55 AM CDT Temperature 36.3 C (97.3 F) 04/26/2019 8:55 AM CDT Respiratory Rate 16 04/26/2019 8:55 AM CDT Oxygen Saturation - - Inhaled Oxygen Concentration - - Weight - - Height - - Body Mass Index - - documented in this encounter Progress Notes Ivania Webb RN - 04/25/2019 3:30 PM CDTPt recently dx with GDM, in clinic today for diabetic teaching. Pt instructed on how to check her blood glucose levels at home 4x/day and keep a daily glucose log. Pt demonstrated appropriate teach back. Reviewed GDM nutrition packet, will adhere to a 2000 calorie diet. Pt scheduled to rtc in 1 week for follow up, verbalzied understanding. documented in this encounter Plan of Treatment Date Type Specialty Care Team Description 05/02/2019 Routine Visit OB Osmani Bernal, LENNY [address] [place] [address] 05/14/2019 Routine Visit OB Osmani Bernal, LENNY [address] [place] [address] 05/20/2019 Financial Investment Adviser Visit Maternal Medicine Health Maintenance Due Date [...] Subscriber ID Effective Phone Address Type Group [facility] xxxxxxxxx 2019-Vickie PAIGE Medicaid [employer] [place] [employer] [place] [id number] MANAGED MEDICAID [place], [place] MED[place]ID [phone] documented as of this encounter Advance Directives Name Relationship Healthcare Agent Relationship Communication Lizz Stone Sibling Primary healthcare agent
--- OUTSIDE RECORDS SUMMARY | 2019-05-26 15:55 | XMS REPORT | Summary of Care ---
:1990 Author Organization [facility] Address [address] [place] [address] Care Team Providers Name Role Phone Frankie Mckenzie MD Primary Care Provider Reason for Visit Reason Comments Other go to [facility] [id number] for freestyle lite device it is being rejected Encounter Details Date Type Department Care Team Description 04/26/2019 [facility], Other (go to [facility] [address] [id number] [place] [address] [place] [id number] being rejected) [phone] Allergies Active Allergy Reactions Severity Noted Date Comments Sulfa (Sulfonamide Antibiotics) Rash High 04/16/2019 documented as of this encounter (statuses as of 04/26/2019) Medications Medication Sig Dispensed Refills Start End Date Status Date Thyroid, Pork, (ARMOUR Take 180 mg 0 Active THYROID) 120 mg tablet by mouth daily. HYDROCHLOROTHIAZIDE ORAL Take by 0 Active mouth. vit Take 1 Packet 30 Each 6 Active 67-tzfw-yzaxc-dha by mouth 9 (SELECT-OB + DHA) 29 mg daily. iron-1 mg -250 mg combo packIndications: High risk , antepartum Blood-Glucose Meter Use as 1 Kit 0 Active (FREESTYLE LITE METER) directed 9 KitIndications: Diet controlled gestational diabetes mellitus (GDM) in first trimester lancets 17 gauge Use as 100 Each 9 Active MiscIndications: Diet directed 9 controlled gestational diabetes mellitus (GDM) in first trimester blood sugar diagnostic Patient needs 1 Box 5 Active strip to check 9 glucose 4X/daily. blood sugar diagnostic Use as 1 Box 9 04/26/20 Discontinued (FREESTYLE LITE STRIPS) directed 9 19 stripIndications: Diet controlled gestational diabetes mellitus (GDM) [...] exam 06/09/2015 04/16/2019 Overview: ICD10 Diagnosis Term Literacy Tutor Utility Morbid obesity 06/09/2015 06/13/2017 Overview: ICD10 Diagnosis Term Literacy Tutor Utility Other malaise and fatigue 06/09/2015 06/10/2016 Overweight 06/06/2013 06/09/2015 Overview: ICD10 Diagnosis Term Literacy Tutor Utility delivery delivered 04/16/2011 02/21/2014 Overview: ICD10 Diagnosis Term Literacy Tutor Utility documented as of this encounter (statuses [...] Description 05/02/2019 Routine Visit OB Osmani Bernal, BEER RUNNER [address] [place] [address] [phone] 05/14/2019 Routine Visit OB Osmani Bernal, BEER RUNNER [address] [place] [address] [phone] 05/20/2019 Iron Setter Visit Maternal Medicine Health Maintenance Due Date [...] Subscriber ID Effective Phone Address Type Group [facility] xxxxxxxxx 2019-Vickie PAIGE Medicaid HEALTH CHOICE - HEALTH CHOICE [id number] MANAGED MEDICAID [place], [place] MEDICAID [id number] documented as of this encounter Advance Directives Name Relationship Healthcare Agent Relationship Communication Lizz Bertha Sibling Primary healthcare agent
[2019-05-26 16:51] LABS: Urine Bacteria <20 /HPF (<20); Urine Culture Reflex Order NOT NEEDED; Urine RBC <5 /HPF (NONE SEEN)
[2019-05-26 16:51] LABS: Urine Blood TRACE (NEG); Urine Glucose NEGATIVE (NEG); Urine Protein NEGATIVE (NEG); Urine pH 6.5 (5.0-7.0)
--- NOTE | 2019-05-26 17:26 | ER ---
Nurse's Notes [facility] Name: Patricia Stone Age: 28 yrs Sex: Female : 1990 Arrival Date: 05/26/2019 Time: 15:56 Bed 30 Private MD: Diagnosis: Acute bronchitis;Acute serous otitis media Presentation: 05/26 16:01 Presenting complaint: Patient states: I am about 11 weeks and I have been la1 feeling ill with facial pain, sore throat, cough, congestion. Transition of care: patient was not received from another setting of care. Onset of symptoms was May 26, 2019. Risk Assessment: Do you want to hurt yourself or someone else? Patient reports no desire to harm self or others. Initial Sepsis Screen: Does the patient meet any 2 criteria? No. Patient's initial sepsis screen is negative. Does the patient have a suspected source of infection? No. Patient's initial sepsis screen is negative. Care prior to arrival: None. 16:01 Method Of Arrival: Ambulatory la1 16:01 Acuity: ANNMARIE 4 la1 Triage Assessment: 17:48 Headache History: Denies prior headaches. General: Appears in no apparent distress. rv comfortable, Behavior is calm, cooperative. Pain: Pain Pain began suddenly, Also complains of no other associated symptoms. ADMINISTRATION PROFESSIONAL: 16:02 LMP 02/28/2019 la1 Historical: - Allergies: 16:02 Bactrim; la1 - PMHx: 16:02 Diabetes - NIDDM; la1 - PSHx: 16:02 ; la1 - Immunization history:: Adult Immunizations up to date. - Social history:: Smoking status: Patient/guardian denies using tobacco. - Ebola Screening: : No symptoms or risks identified at this time. Screenin:47 Abuse screen: Denies threats or abuse. Denies injuries from another. Nutritional rv screening: No deficits noted. Tuberculosis screening: No symptoms or risk factors identified. Fall Risk None identified. Assessment: 16:23 General: Appears in no apparent distress. comfortable, Behavior is calm, cooperative. rv Pain: Complains of pain in head. Neuro: Level of Consciousness is awake, alert, obeys commands, Oriented to person, place, time, situation. Cardiovascular: Patient's skin is warm and dry. Respiratory: Airway is patent. Respiratory:. GI: No signs and/or symptoms were reported involving the gastrointestinal system. : No signs and/or symptoms were reported regarding the genitourinary system. EENT: No signs and/or symptoms were reported regarding the EENT system. Derm: Skin is intact. Musculoskeletal: No signs and/or symptoms reported regarding the musculoskeletal system. Vital Signs: 16:02 BP 126 / 68; Pulse 106; Resp 16; Temp 98.1; Pulse Ox 100% on R/A; Weight 100.7 kg; la1 Height 5 ft. 3 in. (160.02 cm); 17:47 BP 121 / 66; Pulse 96; Resp 15; Temp 98; Pulse Ox 99% on R/A; rv 16:02 Body Mass Index 39.33 (100.70 kg, 160.02 cm) la1 ED Course: 15:56 Patient arrived in ED. mr 16:00 Patient has correct armband on for positive identification. Bed in low position. Call rv light in reach. Side rails up X 1. 16:00 Pulse ox on. NIBP on. rv 16:02 Triage completed. la1 16:03 Zaheer Bruce, LIZ is Primary Nurse. rv 16:03 Arm band placed on left wrist. la1 16:05 Gudelia Pelaez FNP-C is [facility]. snw 16:05 Ignacio Lynn MD is Attending Physician. snw 16:44 Urine Microscopic Only Sent. rv 16:44 Flu Sent. rv 16:44 Strep Sent. rv 17:48 No provider procedures requiring assistance completed. Patient did not have IV access rv during this emergency room visit. Administered Medications: 17:36 Not Given (Patient Refused; Pt is driving home. ): ZyrTEC - Cetirizine 10 mg PO once ca1 17:38 Drug: Augmentin 875 mg Route: PO; ca1 17:49 Follow up: Response: Medication administered at discharge. rv Outcome: 17:23 Discharge ordered by . snw 17:49 Discharged to home ambulatory, with family. rv 17:49 Condition: good 17:49 Discharge instructions given to patient, Instructed on discharge instructions, follow up and referral plans. medication usage, Demonstrated understanding of instructions, follow-up care, medications, Prescriptions given X 2. 17:49 Patient left the ED. rv Signatures: Gudelia Pelaez FNP-C UNDERWRITING SUPPORT SPECIALIST-Csnw Geronimo Lori mr Rick, Imtiaz, RN RN la1 Zaheer Bruce, RN RN rv Sabiha, Linda, RN RN ca1
--- NOTE | 2019-05-26 17:27 | EDPHYS ---
Physician Documentation [facility] Name: Patricia Stone Age: 28 yrs Sex: Female : 1990 Arrival Date: 05/26/2019 Time: 15:56 Bed 30 Private MD: ED Physician Ignacio Lynn HPI: 05/26 16:50 This 28 yrs old Female presents to ER via Ambulatory with complaints of Sinus snw Congestion, Headache, Fever. 16:50 The patient or guardian reports cough, with no sputum. Onset: The symptoms/episode snw began/occurred suddenly, 3 day(s) ago, and became persistent. Severity of symptoms: At their worst the symptoms were mild, moderate. Modifying factors: The symptoms are alleviated by nothing. The patient has not experienced similar symptoms in the past. It is unknown whether or not the patient has recently seen a physician. no vaginal discharge or bleeding. 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 - Social history:: Smoking status: Patient/guardian denies using tobacco. - Ebola Screening: : No symptoms or risks identified at this time. ROS: 16:17 Eyes: Negative for injury, pain, redness, and discharge. snw 16:17 Neck: Negative for injury, pain, and swelling, Cardiovascular: Negative for chest pain, palpitations, and edema. 16:17 Abdomen/GI: Negative for abdominal pain, nausea, vomiting, diarrhea, and constipation, Back: Negative for injury and pain, : Negative for injury, bleeding, discharge, and swelling, MS/Extremity: Negative for injury and deformity, Skin: Negative for injury, rash, and discoloration, Neuro: Negative for headache, weakness, numbness, tingling, and seizure. 16:17 Constitutional: Positive for body aches, malaise. 16:17 ENT: Positive for ear pain, nasal discharge, sinus congestion. 16:17 Respiratory: Positive for cough, with no reported sputum. Exam: 16:17 Constitutional: This is a well developed, well nourished patient who is awake, alert, snw and in no acute distress. Head/Face: Normocephalic, atraumatic. Neck: Trachea midline, no thyromegaly or masses palpated, and no cervical lymphadenopathy. Supple, full range of motion without nuchal rigidity, or vertebral point tenderness. No Meningismus. Chest/axilla: Normal chest wall appearance and motion. Nontender with no deformity. No lesions are appreciated. 16:17 Respiratory: Lungs have equal breath sounds bilaterally, clear to auscultation and percussion. No rales, rhonchi or wheezes noted. No increased work of breathing, no retractions or nasal flaring. Abdomen/GI: Soft, non-tender, with normal bowel sounds. No distension or tympany. No guarding or rebound. No evidence of tenderness throughout. Back: No spinal tenderness. No costovertebral tenderness. Full range of motion. Skin: Warm, dry with normal turgor. Normal color with no rashes, no lesions, and no evidence of cellulitis. MS/ Extremity: Pulses equal, no cyanosis. Neurovascular intact. Full, normal range of motion. Neuro: Awake and alert, GCS 15, oriented to person, place, time, and situation. Cranial nerves II-XII grossly intact. Motor strength 5/5 in all extremities. Sensory grossly intact. Cerebellar exam normal. Normal gait. Psych: Awake, alert, with orientation to person, place and time. Behavior, mood, and affect are within normal limits. 16:17 ENT: External ear(s): are unremarkable, Ear canal(s): are normal, TM's: erythema, that is mild, on the left, fluid levels, on the left, Nose: is normal, Mouth: is normal, Posterior pharynx: is normal, Voice: is normal. 16:17 Cardiovascular: Rate: tachycardic, Rhythm: regular, Heart sounds: normal. Vital Signs: 16:02 BP 126 / 68; Pulse 106; Resp 16; Temp 98.1; Pulse Ox 100% on R/A; Weight 100.7 kg; la1 Height 5 ft. 3 in. (160.02 cm); 17:47 BP 121 / 66; Pulse 96; Resp 15; Temp 98; Pulse Ox 99% on R/A; rv 16:02 Body Mass Index 39.33 (100.70 kg, 160.02 cm) la1 MDM: 16:14 Patient medically screened. snw 17:25 Data reviewed: vital signs, nurses notes. Data interpreted: Pulse oximetry: on room air snw is 100 %. Interpretation: normal. Counseling: I had a detailed discussion with the patient and/or guardian regarding: the historical points, exam findings, and any diagnostic results supporting the discharge/admit diagnosis, lab results, the need for outpatient follow up, to return to the emergency department if symptoms worsen or persist or if there are any questions or concerns that arise at home. Special discussion: Based on the history and exam findings, there is no indication for further emergent testing or inpatient evaluation. I discussed with the patient/guardian the need to see the OB Gyne specialist for further evaluation of the symptoms. I discussed with the patient/guardian the need to see the primary care provider for further evaluation of the symptoms. 05/26 16:05 Order name: Strep; Complete Time: 17:26 snw 05/26 16:05 Order name: Flu; Complete Time: 17:26 snw 05/26 16:16 Order name: Urine Microscopic Only; Complete Time: 17:17 snw 05/26 16:30 Order name: Urine Dipstick--Ancillary (enter results); Complete Time: 17:17 eb 05/26 16:30 Order name: Urine --Ancillary (enter results); Complete Time: 17:17 eb 05/26 17:23 Order name: Throat Culture [facility] 05/26 16:16 Order name: Urine Dipstick-Ancillary (obtain specimen); Complete Time: 16:44 snw Administered Medications: 17:36 Not Given (Patient Refused; Pt is driving home. ): ZyrTEC - Cetirizine 10 mg PO once ca1 17:38 Drug: Augmentin 875 mg Route: PO; ca1 17:49 Follow up: Response: Medication administered at discharge. rv Disposition: 05/27 09:24 Co-signature as Attending Physician, Ignacio Lynn MD I agree with the assessment and omer plan of care. Disposition: 05/26/19 17:23 Discharged to Home. Impression: Acute bronchitis, Acute serous otitis media. - Condition is Stable. - Discharge Instructions: Acute Bronchitis, Adult, Otitis Media, Adult, Fever, Adult, Cough, Adult, Rehydration, Adult. - Prescriptions for Augmentin 875- 125 mg Oral Tablet - take 1 tablet by ORAL route every 12 hours for 10 days; 20 tablet. Zyrtec 10 mg Oral Tablet - take 1 tablet by ORAL route once daily As needed; 20 tablet. - Work release form, Medication Reconciliation Form, Thank You Letter, Antibiotic Education, Prescription Opioid Use form. - Follow up: Private Physician; When: 2 - 3 days; Reason: Recheck today's complaints, Continuance of care, Re-evaluation by your physician. Follow up: Emergency Department; When: As needed; Reason: Worsening of condition. Signatures: Dispatcher [employer] EDMS Ignacio Lynn, Gudelia Benjamin MD, cha, SPA COORDINATOR-C SPA COORDINATOR-Csnw Imtiaz Cabrera RN RN la1 Zaheer Bruce RN RN rv Linda Landis RN RN ca1 Corrections: (The following items were deleted from the chart) 05/26 17:24 17:23 05/26/2019 17:23 Discharged to Home. Impression: Acute bronchitis. Condition is snw Stable. Forms are Medication Reconciliation Form, Thank You Letter, Antibiotic Education, Prescription Opioid Use. Follow up: Private Physician; When: 2 - 3 days; Reason: Recheck today's complaints, Continuance of care, Re-evaluation by your physician. Follow up: Emergency Department; When: As needed; Reason: Worsening of condition. snw 17:49 17:24 05/26/2019 17:23 Discharged to Home. Impression: Acute bronchitis; Acute serous rv otitis media. Condition is Stable. Forms are Medication Reconciliation Form, Thank You Letter, Antibiotic Education, Prescription Opioid Use. Follow up: Private Physician; When: 2 - 3 days; Reason: Recheck today's complaints, Continuance of care, Re-evaluation by your physician. Follow up: Emergency Department; When: As needed; Reason: Worsening of condition. snw
[2019-05-26] MEDS ORDERED: CETIRIZINE HCL 5 MG TABLET ONE (17:34)
[2019-05-26] MEDS ORDERED: AMOX/K CLAV 875 MG TAB ONE (17:35)
== END 2019-05-26 17:49 | disposition home or self-care (01) ==
LOC: ER 15:51
DX: O26.891 Other specified pregnancy related conditions, first trimester (principal); J20.9 Acute bronchitis, unspecified; H65.02 Acute serous otitis media, left ear
CPT/HCPCS: 81003; 81015; 81025; 87070; 87081; 87804; 99284

== ENCOUNTER 2021-02-03 19:14 | Emergency (ER) | payer OTHER ==
--- OUTSIDE RECORDS SUMMARY | 2021-02-03 19:16 | XMS REPORT | Continuity of Care Document ---
:1990 Author Organization [facility] t Address [address] [place] [address] Care Team Providers Name Role Phone Dk SEARS Attending Clinician Problems This patient has no known problems. Allergies, Adverse Reactions, Alerts Allergy Allergy Status Severity Reaction(s) Onset Inactive Treating Comm ents Source Name Type Date Date Clinician Sulfa Adverse Active rash [facility] Medications Ordered Filled Start Stop Current Ordering Indication Dosage Frequency Signature Comments Components Source Medication Medication Date Date Medication? Clinician (SIG) Name Name Levothyroxi Levothyroxi Yes Na Lynn [address] [facility] ne Sodium ne Sodium in the Irvin es - morning on Memoria an empty l stomach [facility] Folic Acid Folic Acid Yes Na Lynn [address] [facility] Procedures This patient has no known procedures. Encounters Start End Encounter Admission Attending Care Care Encounter Source Date/Time Date/Time Type Type Clinicians Facility Department ID 2021-01-26 2021-01-26 Office TYRELL Root [id number] 08:09:54 08:55:03 Visit Adelita Sim [id number] Edu [id number] [facility] [id number] formerly [facility] 2020-10-05 2020-10-05 Outpatient [facility] [id number] [facility] 2020-08-03 2020-08-03 Outpatient [facility] [id number] [facility] 2020-05-01 2020-05-01 [facility] [id number] [facility] 11:40[facility]00 11:40:00 [facility] 2020-03-24 2020-03-24 [facility] [id number] [facility] 10:00:00 10:00:00 [facility] 2020-02-14 2020-02-14 [facility] [id number] [facility] 11[facility]21:00 11:21:00 t [facility] 2020-01-29 2020-01-29 [facility] [id number] [facility] 09:40:00 09:40:00 t [facility] 2020-01-23 2020-01-23 [facility] [id number] [address] 15:32:00 15:32:00 t [facility] 2020-01-14 2020-01-14 [facility] [id number] 14:00:00 14:00:00 [facility] Results This patient has no known results.
--- NOTE | 2021-02-03 20:51 | ER ---
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 Coronavirus screen: Client denies travel out of the [place] in the last 14 days. At this time, the client does not indicate any symptoms associated with coronavirus-19. Ebola Screen: Patient negative for fever greater than or equal to 101.5 degrees Fahrenheit, and additional compatible Ebola Virus Disease symptoms Patient denies exposure to infectious person. Patient denies travel to an Ebola-affected area in the 21 days before illness onset. No symptoms or risks identified at this time. Complicating Factors: There are no complicating factors for this patient. Initial Sepsis Screen: Does the patient meet any 2 criteria? No. Patient's initial sepsis screen is negative. Does the patient have a suspected source of infection? No. Patient's initial sepsis screen is negative. Risk Assessment: Do you want to hurt yourself or someone else? Patient reports no desire to harm self or others. Onset of symptoms was February 03, 2021. 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 Last tetanus immunization: < 5 years ago Flu vaccine is not up to date. - Social history:: Smoking status: Patient denies any tobacco usage or history of. Screenin:20 Abuse screen: Denies threats or abuse. Denies injuries from another. Nutritional ca1 screening: No deficits noted. Tuberculosis screening: No symptoms or risk factors identified. Fall Risk None identified. Assessment: 20:20 General: Appears in no apparent distress. comfortable, Behavior is calm, cooperative, ca1 appropriate for age. Pain: Complains of pain in dorsal aspect of middle phalanx of right middle finger Pain currently is 8 out of 10 on a pain scale. Neuro: Level of Consciousness is awake, alert, obeys commands, Oriented to person, place, time, situation. Derm: Skin is healthy with good turgor, Skin is pink, warm \T\ dry. Musculoskeletal: Circulation, motion, and sensation intact. Capillary refill < 3 seconds. Injury Description: Laceration sustained to dorsal aspect of middle phalanx of right middle finger is clean, was sustained 30-60 minutes ago. is bleeding no active bleeding noted. 21:09 Reassessment: Patient appears in no apparent distress at this time. Patient is alert, ca1 oriented x 3, equal unlabored respirations, skin warm/dry/pink. Vital Signs: 19:33 BP 165 / 105; Pulse 91; Resp 16 S; Temp 97.6(TE); Pulse Ox 99% on R/A; Weight 103.42 kg ca1 (R); Height 5 ft. 8 in. (172.72 cm) (R); Pain 5/10; 21:09 BP 149 / 89; Pulse 90; Resp 16 S; Pulse Ox 99% on R/A; ca1 19:33 Body Mass Index 34.67 (103.42 kg, 172.72 cm) ca1 ED Course: 19:16 Patient arrived in ED. cf2 19:36 Triage completed. ca1 19:36 Arm band placed on right wrist. ca1 20:02 Ruchi Adler [facility]C [facility]. kb 20:02 Gab Gresham MD is Attending Physician. kb 20:20 Patient has correct armband on for positive identification. Bed in low position. Call ca1 light in reach. 20:20 No provider procedures requiring assistance completed. Patient did not have IV access ca1 during this emergency room visit. Wound care: to laceration located on dorsal aspect of middle phalanx of right middle finger was cleaned with Hibiclens, dressed with 4X4s, Patient tolerated well. 21:06 Linda Landis, RN is Primary Nurse. ca1 Administered Medications: No medications were administered Outcome: 20:50 Discharge ordered by . angella 21:10 Discharged to home ambulatory. ca1 21:10 Condition: stable 21:10 Discharge instructions given to patient, Instructed on discharge instructions, follow up and referral plans. wound care, Demonstrated understanding of instructions, follow-up care, wound care. 21:10 Patient left the ED. ca1 Signatures: Ruchi dAler FNP-C FNP-Ckb Acob, Cheryl RN RN ca1 Pantera Martinez cf2
--- NOTE | 2021-02-03 20:52 | EDPHYS ---
Physician Documentation [facility] Name: Patricia Stone Age: 30 yrs Sex: Female : 1990 Arrival Date: 02/03/2021 Time: 19:16 Bed 12 Private MD: ED Physician Gab Gresham HPI: 02/04 00:28 This 30 yrs old Female presents to ER via Ambulatory with complaints of kb Laceration To Hand. 00:28 The patient has a laceration related to: cooking, occurred at home, and there are no kb complicating factors. The injury was accidental. The laceration(s) is(are) located on the dorsal aspect of distal phalanx of left middle finger. Onset: The symptoms/episode began/occurred just prior to arrival. Associated signs and symptoms: The patient has no apparent associated signs or symptoms. The patient has not experienced similar symptoms in the past. The patient has not recently seen a physician. 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 Last tetanus immunization: < 5 years ago Flu vaccine is not up to date. - Social history:: Smoking status: Patient denies any tobacco usage or history of. ROS: 02/04 00:25 Constitutional: Negative for fever, chills, and weight loss, MS/Extremity: Negative for kb injury and deformity, Neuro: Negative for headache, weakness, numbness, tingling, and seizure. Skin: Positive for avulsion, of the dorsal aspect of distal phalanx of left middle finger. Exam: 00:27 Constitutional: This is a well developed, well nourished patient who is awake, alert, kb and in no acute distress. Head/Face: Normocephalic, atraumatic. ENT: Moist Mucous membranes Respiratory: Respirations even and unlabored. No increased work of breathing, no retractions or nasal flaring. MS/ Extremity: Pulses equal, no cyanosis. Neurovascular intact. Full, normal range of motion. Neuro: Awake and alert, GCS 15, oriented to person, place, time, and situation. Moves all extremities. Normal gait. Psych: Awake, alert, with orientation to person, place and time. Behavior, mood, and affect are within normal limits. 00:27 Skin: injury, avulsion(s), a small of the dorsal aspect of distal phalanx of left middle finger. Vital Signs: 02/03 19:33 BP 165 / 105; Pulse 91; Resp 16 S; Temp 97.6(TE); Pulse Ox 99% on R/A; Weight 103.42 kg ca1 (R); Height 5 ft. 8 in. (172.72 cm) (R); Pain 5/10; 21:09 BP 149 / 89; Pulse 90; Resp 16 S; Pulse Ox 99% on R/A; ca1 19:33 Body Mass Index 34.67 (103.42 kg, 172.72 cm) ca1 MDM: 20:19 Patient medically screened. kb 02/04 00:25 Data reviewed: vital signs, nurses notes. Data interpreted: Pulse oximetry: on room air kb is 99 %. Interpretation: normal. Counseling: I had a detailed discussion with the patient and/or guardian regarding: the historical points, exam findings, and any diagnostic results supporting the discharge/admit diagnosis, the need for outpatient follow up, a family practitioner, to return to the emergency department if symptoms worsen or persist or if there are any questions or concerns that arise at home. 00:25 ED course: surgicel and pressure dressing applied . kb Administered Medications: No medications were administered Disposition: 00:34 Co-signature as Attending Physician, Gab Gresham MD. rn Disposition: 02/03/21 20:50 Discharged to Home. Impression: Laceration without foreign body of right middle finger without damage to nail - avulsion. - Condition is Stable. - Discharge Instructions: Deep Skin Avulsion. - Medication Reconciliation Form, Thank You Letter, Antibiotic Education, Prescription Opioid Use form. - Follow up: Emergency Department; When: As needed; Reason: Worsening of condition. Follow up: Private Physician; When: 2 - 3 days; Reason: Recheck today's complaints, Continuance of care, Re-evaluation by your physician. Signatures: Ruchi Adler, SHANK INSPECTOR-C SHANK INSPECTOR-Gab Calderón MD MD rn AcLinda olsen RN RN ca1 Corrections: (The following items were deleted from the chart) 02/03 21:10 20:50 02/03/2021 20:50 Discharged to Home. Impression: Laceration without foreign body ca1 of right middle finger without damage to nail - avulsion. Condition is Stable. Forms are Medication Reconciliation Form, Thank You Letter, Antibiotic Education, Prescription Opioid Use. Follow up: Emergency Department; When: As needed; Reason: Worsening of condition. Follow up: Private Physician; When: 2 - 3 days; Reason: Recheck today's complaints, Continuance of care, Re-evaluation by your physician. kb 02/04 00:28 00:27 Skin: injury, avulsion(s), a small kb kb
[2021-02-03 21:36] VITALS: TEMP 97.6; O2SAT 99
[2021-02-03 21:38] VITALS: BP 149/89
== END 2021-02-03 21:10 | disposition home or self-care (01) ==
LOC: ER 19:14
DX: S61.312A Laceration without foreign body of right middle finger with damage to nail, initial encounter (principal); W26.9XXA Contact with unspecified sharp object(s), initial encounter; Y93.G3 Activity, cooking and baking; Y92.000 Kitchen of unspecified non-institutional (private) residence as the place of occurrence of the external cause; Z88.1 Allergy status to other antibiotic agents
CPT/HCPCS: 99283